=== PATIENT | female | born 1965 | race American Indian/Alaskan Native ===

== ENCOUNTER 2022-02-03 11:50 | Inpatient (IN) | payer OTHER ==
--- NOTE | 2022-02-03 12:33 | XRay Report ---
CHEST 1 VIEW INDICATION: Chest Pain. COMPARISON: None FINDINGS: Support devices: None. Heart: Mild cardiomegaly Lungs/Pleura: Mild central pulmonary venous congestion. The lungs are clear otherwise with no evidenc e for infiltrate, pleural effusion or pneumothorax. Additional findings: None. IMPRESSION: Mild cardiomegaly and central pulmonary venous congestion but no CHF. Signer Name: Amadeo Ferraro Jr, MD Signed: 02/03/2022 12:29 PM Workstation Name: [id number]
--- NOTE | 2022-02-03 13:34 | Emergency Department Report ---
ED Chest Pain HPI - General Chief Complaint: Chest Pain Stated Complaint: Dyspnea with exertion Time Seen by Provider: 02/03/22 12:01 Source: EMS Mode of arrival: Stretcher Limitations: No Limitations - History of Present Illness Initial Comments: Patient is a 56-year-old female with past medical history of hyperlipidemia who complaint chest pain. Patient states she was at work when her chest pain started. She states that substernal. It was initially severe but now has improved. She had some mild shortness of breath at that time but denies any s hortness of breath at this time. She denies any family history of any cardiac disease and she denies any history of pulmonary embolism. Severity scale (0 -10): 0 - Related Data Home Medications Medication Instructions Recorded Confirmed Last Taken Alendronate Sodium [Fosamax] 70 mg PO QWEEK 02/03/22 02/03/22 Unknown AtorvaSTATin [Lipitor] 20 mg PO QHS 02/03/22 02/03/22 02/02/22 2100 Ergocalciferol [Vitamin D2] 1 cap PO QWEEK 02/03/22 02/03/22 Unknown Ibuprofen [Motrin] 800 mg PO Q8HR PRN 02/03/22 02/03/22 Unknown Allergies Allergy/AdvReac Type Severity Reaction Status Date / Time Penicillins Allergy Unknown Verified 02/03/22 11:55 Heart Score - HEART Score History: Moderately suspicious EKG: Normal Age: 45-65 Risk factors: 1-2 risk factors Troponin: < normal limit HEART Score: 3 - EKG Read Time Time EKG Completed: 12:23 EKG Read Time: 12:23 ED Review of Systems ROS: Stated complaint: Dyspnea with exertion Other details as noted in HPI Constitutional: denies: chills, fever Eyes: denies: eye pain ENT: denies: ear pain, throat pain Respiratory: SOB at rest. denies: cough, orthopnea, SOB with exertion Cardiovascular: chest pain. denies: palpitations Endocrine: no symptoms reported Gastrointestinal: as per HPI Genitourinary: denies: urgency, dysuria, discharge Musculoskeletal: denies: back pain, joint swelling, arthralgia Skin: denies: rash, lesions Neurological: denies: headache, weakness, paresthesias Psychiatric: denies: anxiety, depression Hematological/Lymphatic: denies: easy bleeding, easy bruising ED Past Medical Hx - Past Medical History Previous Medical History?: No - Medications Home Medications: Home Medications Medication Instructions Recorded Confirmed Last Taken Type Alendronate Sodium [Fosamax] 70 mg PO QWEEK 02/03/22 02/03/22 Unknown History AtorvaSTATin [Lipitor] 20 mg PO QHS 02/03/22 02/03/22 02/02/22 History 2100 Ergocalciferol [Vitamin D2] 1 cap PO QWEEK 02/03/22 02/03/22 Unknown History Ibuprofen [Motrin] 800 mg PO Q8HR PRN 02/03/22 02/03/22 Unknown History ED Physical Exam - General Limitations: No Limitations General appearance: alert, in no apparent distress - Head Head exam: Present: atraumatic, normocephalic - Eye Eye exam: Present: normal appearance - ENT ENT exam: Present: mucous membranes moist - Neck Neck exam: Present: normal inspection - Respiratory Respiratory exam: Present: normal lung sounds bilaterally. Absent: respiratory distress - Cardiovascular Cardiovascular Exam: Present: irregular rhythm. Absent: systolic murmur, diastolic murmur, rubs, gallop - GI/Abdominal GI/Abdominal exam: Present: soft, normal bowel sounds - Rectal Rectal exam: Present: deferred - Extremities Exam Extremities exam: Present: normal inspection - Back Exam Back exam: Present: normal inspection - Neurological Exam Neurological exam: Present: alert, oriented X3 - Psychiatric Psychiatric exam: Present: normal affect, normal mood - Skin Skin exam: Present: warm, dry, intact, normal color. Absent: rash ED Course Vital Signs 02/03/22 02/03/22 02/03/22 11:54 12:28 12:40 Temperature 98.4 F Pulse Rate 118 H 91 H Respiratory 16 16 Rate Blood Pressure Blood Pressure 147/96 [Right] O2 Sat by Pulse 100 Oximetry 02/03/22 02/03/22 02/03/22 16:01 17:01 18:01 Temperature Pulse Rate 115 H 102 H 109 H Respiratory 12 11 L 13 Rate Blood Pressure 118/77 114/81 130/89 Blood Pressure [Right] O2 Sat by Pulse 99 97 99 Oximetry 02/03/22 02/03/22 02/03/22 19:01 20:01 21:00 Temperature Pulse Rate 123 H 107 H Respiratory 17 20 Rate Blood Pressure 139/64 131/80 131/80 Blood Pressure [Right] O2 Sat by Pulse 84 97 79 L Oximetry 02/03/22 02/03/22 22:01 22:50 Temperature 98.0 F Pulse Rate 95 H 74 Respiratory 14 21 Rate Blood Pressure 146/109 Blood Pressure 170/50 [Right] O2 Sat by Pulse 98 Oximetry ED Medical Decision Making - Lab Data Result diagrams: 02/03/22 12:42 02/03/22 12:48 - EKG Data -: EKG Interpreted by Me No standard instances Rhythm: A.Fib - EKG Data When compared to previous EKG there are: previous EKG unavailable - Radiology Data Radiology results: report reviewed, image reviewed - Medical Decision Making Patient is a 56-year-old female here with complaint of chest pain. Differential includes pneumonia, pneumothorax, ACS. Considered but less likely would be aortic dissection and pulmonary embolism. Patient's initial EKG does not show any acute ischemia but she is noted to be in A. fib with a rate of 91. Given this we will order labs including CBC, CMP, Trope, BNP, chest x-ray is also ordered. Patient likely to be admitted as this is new onset A. fib. Critical care attestation.: If time is entered above; I have spent that time in minutes in the direct care of this critically ill patient, excluding procedure time. ED Disposition Clinical Impression: New onset a-fib Disposition: 09 ADMITTED INPATIENT Is pt being admited?: Yes Does the pt Need Aspirin: Yes Condition: Stable
[2022-02-03 13:43] LABS: Basophils % (Auto) 0.2 % (0.0-1.8); Eosinophils % (Auto) 0.5 % (0.0-4.3); Hemoglobin 12.7 gm/dl (10.1-14.3); Lymphocytes # (Auto) 2.3 K/mm3 (1.2-5.4); Lymphocytes % (Auto) 37.5 % (13.4-35.0); Mean Corpuscular HGB Conc 32 % (30-34); Mean Corpuscular Volume 95 fl (79-97); Monocytes # (Auto) 0.6 K/mm3 (0.0-0.8); Monocytes % (Auto) 10.6 % (0.0-7.3); Platelet Count 242 K/mm3 (140-440); Red Blood Count 4.23 M/mm3 (3.65-5.03); Red Cell Distribution Width 13.4 % (13.2-15.2)
[2022-02-03 13:58] LABS: Alanine Aminotransferase 13 units/L (7-56); Albumin 3.9 g/dL (3.9-5); Blood Urea Nitrogen 13 mg/dL (7-17); Calcium 9.4 mg/dL (8.4-10.2); Hemolysis Index 9
[2022-02-03 14:01] LABS: BUN/Creatinine Ratio 33
[2022-02-03] MEDS ORDERED: MORPHINE 2 MG/1 ML INJ IV PRN (19:41)
[2022-02-03] MEDS ORDERED: METOCLOPRAMIDE 10 MG/2 ML INJ IV PRN (19:41)
[2022-02-03] MEDS ORDERED: ACETAMINOPHEN 325 MG TAB PO PRN (19:41)
[2022-02-03] MEDS ORDERED: ONDANSETRON 4 MG/2 ML INJ IV PRN (19:41)
--- NOTE | 2022-02-03 19:47 | History and Physical Report ---
History of Present Illness Date of examination: 02/03/22 Date of admission: February 03, 2022 Chief complaint: Palpitations and chest pain since a.m. History of present illness: 56-year-old -[place] female with no significant past except for hyperlipidemia comes in for palpitations and chest pain since a.m. Palpitations are intermittent. Chest pain is intermittent. In the emergency room patient had a atrial fibrillation with rapid ventricular rate. Also has some mild shortness of breath. No diaphoresis. No radiation. No coronary artery disease or stents in the past. Had a annual physical recently. Past History Past Medical History: hyperlipidemia, other (Vitamin D deficiency, osteoporosis) Past Surgical History: No surgical history Social history: lives with family, full code Family history: hypertension Review of Systems ROS: Stated complaint: Dyspnea with exertion Other details as noted in HPI Constitutional: denies: chills, fever Eyes: denies: eye pain ENT: denies: ear pain, throat pain Respiratory: SOB at rest. denies: cough, orthopnea, SOB with exertion Cardiovascular: chest pain. denies: palpitations Endocrine: no symptoms reported Gastrointestinal: as per HPI Genitourinary: denies: urgency, dysuria, discharge Musculoskeletal: denies: back pain, joint swelling, arthralgia Skin: denies: rash, lesions Neurological: denies: headache, weakness, paresthesias Psychiatric: denies: anxiety, depression Hematological/Lymphatic: denies: easy bleeding, easy bruising Medications and Allergies Allergies Allergy/AdvReac Type Severity Reaction Status Date / Time Penicillins Allergy Unknown Verified 02/03/22 11:55 Home Medications Medication Instructions Recorded Confirmed Last Taken Type Alendronate Sodium [Fosamax] 70 mg PO QWEEK 02/03/22 02/03/22 Unknown History AtorvaSTATin [Lipitor] 20 mg PO QHS 02/03/22 02/03/22 02/02/22 History 2100 Ergocalciferol [Vitamin D2] 1 cap PO QWEEK 02/03/22 02/03/22 Unknown History Ibuprofen [Motrin] 800 mg PO Q8HR PRN 02/03/22 02/03/22 Unknown History Exam - Constitutional Vitals: Temp Pulse Resp BP Pulse Ox 98.4 F 109 H 13 130/89 99 02/03/22 11:54 02/03/22 18:01 02/03/22 18:01 02/03/22 18:01 02/03/22 18:01 General appearance: Present: no acute distress, well-nourished - EENT Eyes: Present: PERRL ENT: hearing intact, clear oral mucosa - Neck Neck: Present: supple, normal ROM - Respiratory Respiratory effort: normal Respiratory: bilateral: CTA - Cardiovascular Heart rate: 130 Rhythm: irregularly irregular Heart Sounds: Present: S1 & S2. Absent: rub, click - Extremities Extremities: pulses symmetrical, No edema Peripheral Pulses: within normal limits - Abdominal General gastrointestinal: Present: soft, non-tender, non-distended, normal bowel sounds Female genitourinary: Present: normal - Integumentary Integumentary: Present: clear, warm, dry - Musculoskeletal Musculoskeletal: gait normal, strength equal bilaterally - Psychiatric Psychiatric: appropriate mood/affect, intact judgment & insight - Neurologic Neurologic: CNII-XII intact, moves all extremities HEART Score - HEART Score History: Moderately suspicious EKG: Normal Age: 45-65 Risk factors: 1-2 risk factors Troponin: Troponin T < 0.010 ng/mL (0.00-0.029) 02/03/22 15:35 Troponin: < normal limit HEART Score: 3 - Critical Actions Critical Actions: 4-6 pts:12-16.6% risk of adverse cardiac event. Should be admitted Results - Labs CBC & Chem 7: 02/03/22 12:42 02/04/22 04:38 Labs: Laboratory Last Values WBC 6.1 K/mm3 (4.5-11.0) 02/03/22 12:42 RBC 4.23 M/mm3 (3.65-5.03) 02/03/22 12:42 Hgb 12.7 gm/dl (10.1-14.3) 02/03/22 12:42 Hct 40.0 % (30.3-42.9) 02/03/22 12:42 MCV 95 fl (79-97) 02/03/22 12:42 MCH 30 pg (28-32) 02/03/22 12:42 MCHC 32 % (30-34) 02/03/22 12:42 RDW 13.4 % (13.2-15.2) 02/03/22 12:42 Plt Count 242 K/mm3 (140-440) 02/03/22 12:42 Lymph % (Auto) 37.5 % (13.4-35.0) H 02/03/22 12:42 [place] % (Auto) 10.6 % (0.0-7.3) H 02/03/22 12:42 Eos % (Auto) 0.5 % (0.0-4.3) 02/03/22 12:42 Baso % (Auto) 0.2 % (0.0-1.8) 02/03/22 12:42 Lymph # (Auto) 2.3 K/mm3 (1.2-5.4) 02/03/22 12:42 [place] # (Auto) 0.6 K/mm3 (0.0-0.8) 02/03/22 12:42 Eos # (Auto) 0.0 K/mm3 (0.0-0.4) 02/03/22 12:42 Baso # (Auto) 0.0 K/mm3 (0.0-0.1) 02/03/22 12:42 Seg Neutrophils % 51.2 % (40.0-70.0) 02/03/22 12:42 Seg Neutrophils # 3.1 K/mm3 (1.8-7.7) 02/03/22 12:42 Sodium 138 mmol/L (137-145) 02/03/22 12:48 Potassium 4.4 mmol/L (3.6-5.0) 02/03/22 12:48 Chloride 102.5 mmol/L (98-107) 02/03/22 12:48 Carbon Dioxide 24 mmol/L (22-30) 02/03/22 12:48 Anion Gap 16 mmol/L 02/03/22 12:48 BUN 13 mg/dL (7-17) 02/03/22 12:48 Creatinine 0.4 mg/dL (0.6-1.2) L 02/03/22 12:48 Estimated GFR > 60 ml/min 02/03/22 12:48 BUN/Creatinine Ratio 33 % 02/03/22 12:48 Glucose 90 mg/dL (65-100) 02/03/22 12:48 Calcium 9.4 mg/dL (8.4-10.2) 02/03/22 12:48 Magnesium 1.70 mg/dL (1.7-2.3) 02/03/22 12:48 Total Bilirubin 0.40 mg/dL (0.1-1.2) 02/03/22 12:48 AST 15 units/L (5-40) 02/03/22 12:48 ALT 13 units/L (7-56) 02/03/22 12:48 Alkaline Phosphatase 64 units/L (35-129) 02/03/22 12:48 Troponin T < 0.010 ng/mL (0.00-0.029) 02/03/22 15:35 NT-Pro-B Natriuret Pep 606.2 pg/mL (0-900) 02/03/22 12:42 Total Protein 7.0 g/dL (6.3-8.2) 02/03/22 12:48 Albumin 3.9 g/dL (3.9-5) 02/03/22 12:48 Albumin/Globulin Ratio 1.3 % 02/03/22 12:48 TSH 2.040 mlU/mL (0.270-4.200) 02/03/22 12:42 Short CBC 02/03/22 Range/Units 12:42 WBC 6.1 (4.5-11.0) K/mm3 Hgb 12.7 (10.1-14.3) gm/dl Hct 40.0 (30.3-42.9) % Plt Count 242 (140-440) K/mm3 BMP 02/03/22 12:48 Sodium 138 Potassium 4.4 Chloride 102.5 Carbon Dioxide 24 BUN 13 Creatinine 0.4 L Glucose 90 Calcium 9.4 Cardiac Enzymes 02/03/22 02/03/22 Range/Units 12:42 15:35 Troponin T < 0.010 < 0.010 (0.00-0.029) ng/mL Liver Function 02/03/22 Range/Units 12:48 Total Bilirubin 0.40 (0.1-1.2) mg/dL AST 15 (5-40) units/L ALT 13 (7-56) units/L Alkaline Phosphatase 64 (35-129) units/L Albumin 3.9 (3.9-5) g/dL Short CBC 02/03/22 Range/Units 12:42 WBC 6.1 (4.5-11.0) K/mm3 Hgb 12.7 (10.1-14.3) gm/dl Hct 40.0 (30.3-42.9) % Plt Count 242 (140-440) K/mm3 BMP 02/03/22 02/04/22 12:48 04:38 Sodium 138 142 Potassium 4.4 4.1 Chloride 102.5 106.5 Carbon Dioxide 24 25 BUN 13 10 Creatinine 0.4 L 0.5 L Glucose 90 86 Calcium 9.4 9.0 Cardiac Enzymes 02/03/22 02/03/22 02/03/22 Range/Units 12:42 15:35 20:06 Troponin T < 0.010 < 0.010 < 0.010 (0.00-0.029) ng/mL 02/04/22 Range/Units 04:38 Troponin T < 0.010 (0.00-0.029) ng/mL Liver Function 02/03/22 02/04/22 Range/Units 12:48 04:38 Total Bilirubin 0.40 0.40 (0.1-1.2) mg/dL AST 15 13 (5-40) units/L ALT 13 11 (7-56) units/L Alkaline Phosphatase 64 59 (35-129) units/L Albumin 3.9 3.4 L (3.9-5) g/dL - Imaging and Cardiology EKG: report reviewed (Atrial fibrillation with RVR no acute ST-T wave changes) Chest x-ray: report reviewed (No acute findings) Assessment and Plan Advance Directives: Yes (Full code) VTE prophylaxis?: Chemical Plan of care discussed with patient/family: Yes - Patient Problems (1) Atrial fibrillation with RVR Current Visit: Yes Status: Acute Plan to address problem: Patient initiated on IV diltiazem at 5 mg/h Cardiology consult requested Add Eliquis if atrial fibrillation does not revert back to normal sinus rhythm (2) Acute coronary syndrome Current Visit: Yes Status: Acute Plan to address problem: Patient for serial troponins and Lexiscan in the morning Cardiology consult requested (3) DVT prophylaxis Current Visit: Yes Status: Acute Plan to address problem: On heparin GI prophylaxis (4) Advance care planning Current Visit: Yes Status: Acute Plan to address problem: Disease education conducted, care plan discussed, diagnosis discussed, prognosis discussed. Patient is full code. Patient acknowledged understanding and agreement with care plan. +30 minutes.
[2022-02-03] MEDS ORDERED: dilTIAZem/D5W 100 MG/100 ML BAG IV SCH (20:00)
[2022-02-03] MEDS: HEPARIN 5,000 UNIT/1 ML VIAL SUB-Q SCH (22:51)
[2022-02-03] MEDS: FAMOTIDINE 20 MG TAB PO SCH (22:51)
[2022-02-04] MEDS: dilTIAZem 30 MG TAB PO SCH ×2 (01:49→06:28)
[2022-02-04 05:31] LABS: Alanine Aminotransferase 11 units/L (7-56); Albumin 3.4 g/dL (3.9-5); Blood Urea Nitrogen 10 mg/dL (7-17); Hemolysis Index 7
[2022-02-04 05:47] LABS: BUN/Creatinine Ratio 20
[2022-02-04] MEDS ORDERED: REGADENOSON 0.4 MG/5 ML INJ IV ONE (07:24)
--- NOTE | 2022-02-04 09:19 | Electrocardiograph Report ---
[facility] Test Date: 2022-02-03 Test Time: 12:23:45 Pat Name: JEAN CARLOS FERNANDO Department: Room: A464 1 Gender: F Planning Aide: DIPIKA : 1965 Requested By: DIMPLE PAT Order Number: [id number] Reading MD: Mitchel Freire Measurements Intervals [place] Rate: 91 P: CA: QRS: 0 QRSD: 70 T: 24 QT: 362 QTc: 446 Interpretive Statements Atrial fibrillation No previous ECG available for comparison Electronically Signed On 02-04-2022 9:18:57 EST by Mitchel Freire
[2022-02-04] MEDS ORDERED: dilTIAZem 30 MG TAB PO SCH (09:40)
--- NOTE | 2022-02-04 10:35 | Nuclear Medicine Report ---
APPROVED REPORT Exam: Nuclear Stress Test Indication: Chest pain Patient Location: [address] [place] [address] Room #: A464 Ht: 5 ft 1 in Wt: 271 lbs BSA: 2.15 m2 HR: 99 bpmBP: 123/85 mmHgBMI: 51.19 Rhythm: Atrial Fibrillation Stress Test Details Stress Test: Pharmacologic stress testing performed using 0.4 mg of regadenoson per 5 mL given IV over 10 seconds. Reason for pharmacologic stress test: Atrial Fibrillation. HR Resting HR: 92 bpm Max HR Achieved: 148 bpm Max Heart Rate (APMHR): 163 bpm Target HR (85% APMHR): 138 bpm % of APMHR: 90 Recovery HR: 126 bpm HR response to stress: Normal HR response to stress BP Resting BP: 123/78 mmHg Max BP: 135/88 mmHg Recovery BP: 114/81 mmHg BP response to stress: Normal blood pressure response to stress. ECG Resting ECG: Atrial Fibrillation Stress ECG: Atrial Fibrillation Arrhythmia: Atrial fibrillation Recovery ECG: Atrial Fibrillation Recovery Arrhythmia: Atrial Fibrillation Clinical Reason for Termination: Completed protocol Stress Symptoms: None NM EXAM: Myocardial Perfusion REST/STRESS Imaging Protocol: Rest Tc-99m/Stress Tc-99m 1 day Resting Data Rest SPECT myocardial perfusion imaging was performed in supine position 45 minutes following the intravenous injection of 10 mCi of Tc-99m Myoview. Time of rest injection: 0730 Pharmacologic Stress Pharmacologic stress test was performed by injecting Regadenoson 0.4 mg IV push followed by the intravenous injection of 28 mCi of Tc-99m Myoview. Time of stress injection: 0922 Gated Stress SPECT was performed 30 minutes after stress injection. The images were gated to evaluate regional wall motion and calculate left ventricular ejection fraction. Study Quality Study: excellent Lung Uptake: Normal Study Data TID = 1.20. Perfusion Wall Motion The rest and stress images show normal left ventricular wall motion. Nuclear Conclusion ECG Findings: negative for ischemia Clinical Findings: negative for ischemia Nuclear Findings: negative for ischemia Exercise Capacity: not assessed Left Ventricular Function: normal negative lexiscan ekg afib non specific st-t Normal left ventricular size and function with no regional wall motion abnormalities.
--- NOTE | 2022-02-04 11:25 | Consultation ---
History of Present Illness Consult date: 02/04/22 Requesting physician: BILLY NATARAJAN Consult reason: atrial fibrillation History of present illness: Patient is 56-year-old female with no past medical history presents to the ED yesterday with complaint of palpitations/chest pounding associated with some shortness of breath while at work that day. Patient reports she is never had this feeling however she does state that she has had episodes of shortness of breath in the past however they were transient and did not last long. On arrival to the ED patient was found to be in A. fib with RVR rate into the 120s. Of note patient reports that she does follow with a PCP and recently saw her PCP about a month and a half ago. She reports that to the best of her knowledge she has never had an arrhythmia in the past. Patient denies any nausea, vomiting, lightheadedness, or diaphoresis. Patient is previously unknown to our practice. Cardiology is consulted for A. fib with RVR Past History Past Medical History: hyperlipidemia, other (Vitamin D deficiency, osteoporosis) Past Surgical History: No surgical history Social history: lives with family, full code Family history: hypertension Medications and Allergies Allergies Allergy/AdvReac Type Severity Reaction Status Date / Time Penicillins Allergy Unknown Verified 02/03/22 11:55 Home Medications Medication Instructions Recorded Confirmed Last Taken Type Alendronate Sodium [Fosamax] 70 mg PO QWEEK 02/03/22 02/03/22 Unknown History AtorvaSTATin [Lipitor] 20 mg PO QHS 02/03/22 02/03/22 02/02/22 History 2100 Ergocalciferol [Vitamin D2] 1 cap PO QWEEK 02/03/22 02/03/22 Unknown History Ibuprofen [Motrin] 800 mg PO Q8HR PRN 02/03/22 02/03/22 Unknown History Active Meds: Active Medications Acetaminophen (Acetaminophen 325 Mg Tab) 650 mg PO Q4H PRN PRN Reason: Pain MILD(1-3)/Fever >100.5/ESTRADA Apixaban (Apixaban 5 Mg Tab) 5 mg PO Q12HR ADELE; Protocol Diltiazem HCl (Diltiazem 60 Mg Tab) 60 mg PO Q6HR ADELE Famotidine (Famotidine 20 Mg Tab) 20 mg PO BID ADELE Last Admin: 02/03/22 22:51 Dose: 20 mg Sodium Chloride (Nacl 0.9% 1000 Ml) 1,000 mls @ 75 mls/hr IV DIRECT [facility] Metoclopramide HCl (Metoclopramide 10 Mg/2 Ml Inj) 10 mg IV Q6H PRN PRN Reason: Nausea And Vomiting Morphine Sulfate (Morphine 2 Mg/1 Ml Inj) 2 mg IV Q4H PRN PRN Reason: Pain, Moderate (4-6) Ondansetron HCl (Ondansetron 4 Mg/2 Ml Inj) 4 mg IV Q8H PRN PRN Reason: Nausea And Vomiting Sodium Chloride (Sodium Chloride 0.9% 10 Ml Flush Syringe) 10 ml IV BID [facility] Last Admin: 02/03/22 22:51 Dose: 10 ml Sodium Chloride (Sodium Chloride 0.9% 10 Ml Flush Syringe) 10 ml IV PRN PRN PRN Reason: LINE FLUSH Review of Systems Constitutional: no weight loss, no weight gain Ears, nose, mouth and throat: no nasal discharge, no sinus pressure, no sinus pain Cardiovascular: palpitations, rapid/irregular heart beat, shortness of breath, dyspnea on exertion, no chest pain, no orthopnea, no edema, no syncope, no lightheadedness Respiratory: shortness of breath, dyspnea on exertion Gastrointestinal: no abdominal pain, no nausea, no vomiting Musculoskeletal: no neck stiffness, no neck pain, no shooting arm pain Integumentary: no rash, no pruritis, no redness Neurological: no head injury, no transient paralysis, no paralysis, no weakness Psychiatric: no anxiety, no memory loss Endocrine: no cold intolerance, no heat intolerance Hematologic/Lymphatic: no easy bruising, no easy bleeding Physical Examination Vital Signs Temp Pulse Resp BP Pulse Ox 98.4 F 118 H 16 147/96 97 02/03/22 11:54 02/03/22 11:54 02/03/22 11:54 02/03/22 11:54 02/03/22 11:54 General appearance: no acute distress Cardiac: Positive: irregularly irregular, Tachycardia Lungs: Positive: Normal Breath Sounds Neuro: Positive: Grossly Intact Abdomen: Positive: Soft, Active Bowel Sounds Skin: Negative: Rash, Suspicious Lesions, Ulceration Extremities: Present: upper extr. pulses. Absent: edema Results 02/04/22 11:00 02/04/22 11:00 Cardiac Enzymes 02/03/22 02/04/22 Range/Units 12:48 04:38 AST 15 13 (5-40) units/L CBC 02/03/22 Range/Units 12:42 WBC 6.1 (4.5-11.0) K/mm3 RBC 4.23 (3.65-5.03) M/mm3 Hgb 12.7 (10.1-14.3) gm/dl Hct 40.0 (30.3-42.9) % Plt Count 242 (140-440) K/mm3 Lymph # (Auto) 2.3 (1.2-5.4) K/mm3 [place] # (Auto) 0.6 (0.0-0.8) K/mm3 Eos # (Auto) 0.0 (0.0-0.4) K/mm3 Baso # (Auto) 0.0 (0.0-0.1) K/mm3 Comprehensive Metabolic Panel 02/03/22 02/04/22 Range/Units 12:48 04:38 Sodium 138 142 (137-145) mmol/L Potassium 4.4 4.1 (3.6-5.0) mmol/L Chloride 102.5 106.5 (98-107) mmol/L Carbon Dioxide 24 25 (22-30) mmol/L BUN 13 10 (7-17) mg/dL Creatinine 0.4 L 0.5 L (0.6-1.2) mg/dL Glucose 90 86 (65-100) mg/dL Calcium 9.4 9.0 (8.4-10.2) mg/dL AST 15 13 (5-40) units/L ALT 13 11 (7-56) units/L Alkaline Phosphatase 64 59 (35-129) units/L Total Protein 7.0 6.3 (6.3-8.2) g/dL Albumin 3.9 3.4 L (3.9-5) g/dL - Imaging and Cardiology Echo: pending EKG interpretations - Telemetry EKG Rhythm: Atrial Fibrillation - EKG Supraventricular dysrhythmia: atrial fibrillation Assessment and Plan Patient is 56-year-old female with no past medical history presents to the ED yesterday with complaint of palpitations/chest pounding associated with some shortness of breath while at work that day New onset A. fib with RVR Obesity Lexiscan MPI stress test 02/04/2022-negative for ischemia with normal LV size and function and no regional wall motion abnormality Plan: EKG shows A. fib rate 90s no acute ischemic changes troponins negative x4. Patient denies any complaint of chest pain AMI ruled out Increased to diltiazem 60 mg p.o. every 6 hours for rate control. If HR not controlled this afternoon may initiate digoxin Initiate anticoagulation with Eliquis Echo pending If rate control patient and patient stable possible discharge in a.m. Patient has a follow up with with Dr. Freire, [facility], on 02/14/2022 at 9:30am in our [place] location. Patient seen in conjunction with Dr. Freire who agrees with this plan of care - Patient Problems (1) Obesity Current Visit: Yes Status: Acute (2) HLD (hyperlipidemia) Current Visit: Yes Status: Acute (3) Atrial fibrillation with RVR Current Visit: Yes Status: Acute (4) New onset a-fib Current Visit: Yes Status: Acute
[2022-02-04 11:27] LABS: Hemoglobin 12.7 gm/dl (10.1-14.3); Mean Corpuscular HGB Conc 33 % (30-34); Mean Corpuscular Volume 94 fl (79-97); Red Blood Count 4.15 M/mm3 (3.65-5.03); Red Cell Distribution Width 13.3 % (13.2-15.2)
[2022-02-04 11:41] LABS: INR 0.97 (0.87-1.13)
[2022-02-04 11:42] LABS: Partial Thromboplastin Time 28.6 Sec. (24.2-36.6)
[2022-02-04] MEDS: dilTIAZem 60 MG TAB PO SCH ×2 (11:49→18:56)
[2022-02-04] MEDS: FAMOTIDINE 20 MG TAB PO SCH ×2 (11:49→21:23)
[2022-02-04] MEDS: HEPARIN 5,000 UNIT/1 ML VIAL SUB-Q SCH (11:49)
[2022-02-04] MEDS: APIXABAN 5 MG TAB PO SCH ×2 (11:49→21:23)
[2022-02-04 12:05] LABS: Platelet Count 232 K/mm3 (140-440)
--- NOTE | 2022-02-04 19:39 | Progress Note ---
Assessment and Plan Assessment and plan: Advance Directives: Yes (Full code) VTE prophylaxis?: Chemical Plan of care discussed with patient/family: Yes --Atrial fibrillation with RVR Current Visit: Yes Status: Acute Patient initiated on IV diltiazem at 5 mg/h Cardiology evaluated the patient Intermittent rapid ventricular rate Anticoagulation with Eliquis -- Acute coronary syndrome Current Visit: Yes Status: Acute Patient for serial troponins and Lexiscan in the morning Lexiscan negative for ischemia, normal LV function --Mild hypoalbuminemia ; albumin 3.2 Nutrition supplements and supportive care --DVT prophylaxis Current Visit: Yes Status: Acute On heparin GI prophylaxis -Morbid obesity; BMI 55.3 Dietary modification, exercise as tolerated and weight reduction When medically stable, patient may benefit from bariatric surgical evaluation For weight reduction program when she is medically stable -Advance care planning Current Visit: Yes Status: Acute Plan to address problem: Disease education conducted, care plan discussed, diagnosis discussed, prognosis discussed. Patient is full code. Patient acknowledged understanding and agreement with care plan. +30 minutes. Closely monitor the patient, if heart rate is well controlled Patient may be discharged tomorrow if stable per cardiology Plan of care reviewed with the patient and her nurse History Interval history: I have seen and examined the patient at the bedside Patient's chart and medications reviewed No new events reported by the nursing staff Vital signs noted Hospitalist Physical - Constitutional Vitals: Temp Pulse Resp BP Pulse Ox 98.0 F 95 H 18 111/68 97 02/04/22 16:31 02/04/22 16:31 02/04/22 16:31 02/04/22 16:31 02/04/22 16:31 General appearance: Present: no acute distress, well-nourished, obese (Morbidly obese) - EENT Eyes: Present: PERRL, EOM intact - Neck Neck: Present: supple, normal ROM - Respiratory Respiratory effort: normal Respiratory: bilateral: diminished, negative: rales, rhonchi, wheezing - Cardiovascular Rhythm: regular Heart Sounds: Present: S1 & S2 - Extremities Extremities: no ischemia, No edema - Abdominal General gastrointestinal: soft, non-tender, non-distended, normal bowel sounds - Integumentary Integumentary: Present: clear, warm - Psychiatric Psychiatric: appropriate mood/affect, cooperative - Neurologic Neurologic: CNII-XII intact, moves all extremities HEART Score - HEART Score EKG: Normal Age: 45-65 Risk factors: 1-2 risk factors Troponin: Troponin T < 0.010 ng/mL (0.00-0.029) 02/04/22 11:00 Troponin: < normal limit - Critical Actions Critical Actions: 4-6 pts:12-16.6% risk of adverse cardiac event. Should be admitted Results - Labs CBC & Chem 7: 02/04/22 11:00 02/04/22 11:00 Labs: Laboratory Last Values WBC 5.9 K/mm3 (4.5-11.0) 02/04/22 11:00 RBC 4.15 M/mm3 (3.65-5.03) 02/04/22 11:00 Hgb 12.7 gm/dl (10.1-14.3) 02/04/22 11:00 Hct 39.0 % (30.3-42.9) 02/04/22 11:00 MCV 94 fl (79-97) 02/04/22 11:00 MCH 31 pg (28-32) 02/04/22 11:00 MCHC 33 % (30-34) 02/04/22 11:00 RDW 13.3 % (13.2-15.2) 02/04/22 11:00 Plt Count 232 K/mm3 (140-440) 02/04/22 11:00 Lymph % (Auto) 37.5 % (13.4-35.0) H 02/03/22 12:42 [place] % (Auto) 10.6 % (0.0-7.3) H 02/03/22 12:42 Eos % (Auto) 0.5 % (0.0-4.3) 02/03/22 12:42 Baso % (Auto) 0.2 % (0.0-1.8) 02/03/22 12:42 Lymph # (Auto) 2.3 K/mm3 (1.2-5.4) 02/03/22 12:42 [place] # (Auto) 0.6 K/mm3 (0.0-0.8) 02/03/22 12:42 Eos # (Auto) 0.0 K/mm3 (0.0-0.4) 02/03/22 12:42 Baso # (Auto) 0.0 K/mm3 (0.0-0.1) 02/03/22 12:42 Seg Neutrophils % 51.2 % (40.0-70.0) 02/03/22 12:42 Seg Neutrophils # 3.1 K/mm3 (1.8-7.7) 02/03/22 12:42 PT 13.9 Sec. (12.2-14.9) 02/04/22 11:00 INR 0.97 (0.87-1.13) 02/04/22 11:00 APTT 28.6 Sec. (24.2-36.6) 02/04/22 11:00 Sodium 142 mmol/L (137-145) 02/04/22 04:38 Potassium 4.1 mmol/L (3.6-5.0) 02/04/22 04:38 Chloride 106.5 mmol/L (98-107) 02/04/22 04:38 Carbon Dioxide 25 mmol/L (22-30) 02/04/22 04:38 Anion Gap 15 mmol/L 02/04/22 04:38 BUN 10 mg/dL (7-17) 02/04/22 04:38 Creatinine 0.5 mg/dL (0.6-1.2) L 02/04/22 11:00 Estimated GFR > 60 ml/min 02/04/22 11:00 BUN/Creatinine Ratio 20 % 02/04/22 04:38 Glucose 86 mg/dL (65-100) 02/04/22 04:38 Calcium 9.0 mg/dL (8.4-10.2) 02/04/22 04:38 Magnesium 1.70 mg/dL (1.7-2.3) 02/03/22 12:48 Total Bilirubin 0.40 mg/dL (0.1-1.2) 02/04/22 04:38 AST 13 units/L (5-40) 02/04/22 04:38 ALT 11 units/L (7-56) 02/04/22 04:38 Alkaline Phosphatase 59 units/L (35-129) 02/04/22 04:38 Troponin T < 0.010 ng/mL (0.00-0.029) 02/04/22 11:00 NT-Pro-B Natriuret Pep 606.2 pg/mL (0-900) 02/03/22 12:42 Total Protein 6.3 g/dL (6.3-8.2) 02/04/22 04:38 Albumin 3.4 g/dL (3.9-5) L 02/04/22 04:38 Albumin/Globulin Ratio 1.2 % 02/04/22 04:38 TSH 2.040 mlU/mL (0.270-4.200) 02/03/22 12:42 Crespo/IV: Voiding Method Toilet Active Medications - Current Medications Current Medications: Generic Name Dose Route Start Last Admin Trade Name Freq PRN Reason Stop Dose Admin Acetaminophen 650 mg 02/03/22 19:41 Acetaminophen 325 Mg Tab PO Q4H PRN Pain MILD(1-3)/Fever >100.5/ESTRADA Apixaban 5 mg 02/04/22 11:30 02/04/22 11:49 Apixaban 5 Mg Tab PO 5 mg Q12HR ADELE Administration Protocol Diltiazem HCl 60 mg 02/04/22 12:00 02/04/22 18:56 Diltiazem 60 Mg Tab PO 60 mg Q6HR ADELE Administration Famotidine 20 mg 02/03/22 22:00 02/04/22 11:49 Famotidine 20 Mg Tab PO 20 mg BID ADELE Administration Sodium Chloride 1,000 mls @ 75 mls/hr 02/03/22 19:45 Nacl 0.9% 1000 Ml IV DIRECT ADELE Metoclopramide HCl 10 mg 02/03/22 19:41 Metoclopramide 10 Mg/2 Ml Inj IV Q6H PRN Nausea And Vomiting Morphine Sulfate 2 mg 02/03/22 19:41 Morphine 2 Mg/1 Ml Inj IV Q4H PRN Pain, Moderate (4-6) Ondansetron HCl 4 mg 02/03/22 19:41 Ondansetron 4 Mg/2 Ml Inj IV Q8H PRN Nausea And Vomiting Sodium Chloride 10 ml 02/03/22 22:00 02/04/22 11:49 Sodium Chloride 0.9% 10 Ml Flush Syringe IV 10 ml BID ADELE Administration Sodium Chloride 10 ml 02/03/22 19:41 Sodium Chloride 0.9% 10 Ml Flush Syringe IV PRN PRN LINE FLUSH
[2022-02-05] MEDS: dilTIAZem 60 MG TAB PO SCH ×4 (00:01→18:12)
[2022-02-05] MEDS: FAMOTIDINE 20 MG TAB PO SCH ×2 (10:05→22:14)
[2022-02-05] MEDS: APIXABAN 5 MG TAB PO SCH ×2 (10:05→22:14)
[2022-02-05] MEDS: FLECAINIDE 100 MG TAB PO SCH ×3 (12:12→22:14)
--- NOTE | 2022-02-05 14:24 | Progress Note ---
Assessment and Plan Reduce diltiazem dose due to low normal BPs. Initiate flecainide with the hope of converting to sinus rhythm. - Patient Problems (1) Atrial fibrillation with RVR Current Visit: Yes Status: Acute (2) New onset a-fib Current Visit: Yes Status: Acute (3) Chest pain Current Visit: Yes Status: Acute (4) Pericardial effusion Current Visit: Yes Status: Acute Subjective Date of service: 02/05/22 Principal diagnosis: New onset AF with RVR, CP Interval history: No complaint. She remains in AF with RVR and borderline BPs. Objective Vital Signs Temp Pulse Resp BP Pulse Ox 02/05/22 11:04 98 02/05/22 10:59 97.5 F L 99 H 16 97/58 93 02/05/22 07:51 99.4 F 91 H 20 99/70 100 02/05/22 04:11 98.0 F 96 H 18 114/90 99 02/04/22 23:57 98.7 F 120 H 19 116/84 98 02/04/22 21:00 112 H 02/04/22 20:25 98.3 F 121 H 20 102/77 100 02/04/22 20:00 99 02/04/22 16:31 98.0 F 95 H 18 111/68 97 02/04/22 15:00 97 - Physical Examination General: No Apparent Distress HEENT: Positive: EOMI, Normocephaly, Mucus Membranes Moist Neck: Positive: neck supple, trachea midline Cardiac: Positive: irregularly irregular, S1/S2 Lungs: Positive: clear to auscultation Neuro: Positive: Grossly Intact Abdomen: Positive: Soft, Active Bowel Sounds. Negative: Tender Skin: Positive: Clear. Negative: Rash Musculoskeletal: Normal Range of Motion Extremities: Absent: edema - Imaging and Cardiology Echo: image reviewed - Telemetry EKG Rhythm: Atrial Fibrillation (with RVR)
--- NOTE | 2022-02-05 16:50 | Progress Note ---
Assessment and Plan Assessment and plan: --Atrial fibrillation with RVR/new onset Current Visit: Yes Status: Acute s/p IV Cardizem, transition to oral Cardizem Patient continues to have intermittent rapid ventricular rate, mild hypotension Cardiology evaluation noted and appreciated, decreased Cardizem dose added antiarrhythmic medications flecainide Anticoagulation with Eliquis Closely monitor overnight and discharge a.m. if stable -- Acute coronary syndrome Current Visit: Yes Status: Acute Patient for serial troponins and Lexiscan in the morning Lexiscan negative for ischemia, normal LV function --Mild hypoalbuminemia ; albumin 3.2 current Visit: Yes Status: Chronic Nutrition supplements and supportive care --DVT prophylaxis On Eliquis -Morbid obesity; BMI 55.3 Current Visit: Yes Status: Chronic Dietary modification, exercise as tolerated and weight reduction When medically stable, patient may benefit from bariatric surgical evaluation For weight reduction program when she is medically stable -Advance care planning +32 min Disease education conducted, care plan discussed, diagnosis discussed, prognosis discussed. Patient is full code. Junior Designer evaluation and recommendations discussed with the patient And I also discussed the importance of diet modification, exercise as tolerated, weight reduction Patient had few questions answered all of them verbalized understanding Patient acknowledged understanding and in agreement with care plan. +32 minutes. Closely monitor the patient, if heart rate is well controlled Patient may be discharged tomorrow if stable per cardiology Plan of care reviewed with the patient and her nurse As well discharge in 1 to 2 days if stable History Interval history: I have have seen and examined the patient at the bedside today Patient's chart and medications reviewed. Patient has intermittent rapid ventricular rate, and mild hypotension Cardiology decrease Cardizem dose and added antiarrhythmic drug flecainide Patient feels better no new complaints Vital signs noted Hospitalist Physical - Constitutional Vitals: Temp Pulse Resp BP Pulse Ox 97.8 F 96 H 16 114/70 100 02/05/22 15:41 02/05/22 15:41 02/05/22 15:41 02/05/22 15:41 02/05/22 15:41 General appearance: Present: no acute distress, well-nourished, obese (Morbidly obese) - EENT Eyes: Present: PERRL, EOM intact - Neck Neck: Present: supple, normal ROM - Respiratory Respiratory effort: normal Respiratory: bilateral: diminished, negative: rales, rhonchi, wheezing - Cardiovascular Rhythm: regular Heart Sounds: Present: S1 & S2 - Extremities Extremities: no ischemia, No edema - Abdominal General gastrointestinal: soft, non-tender, non-distended, normal bowel sounds - Integumentary Integumentary: Present: clear, warm - Psychiatric Psychiatric: appropriate mood/affect, cooperative - Neurologic Neurologic: CNII-XII intact, moves all extremities HEART Score - HEART Score EKG: Normal Age: 45-65 Risk factors: 1-2 risk factors Troponin: Troponin T < 0.010 ng/mL (0.00-0.029) 02/04/22 11:00 Troponin: < normal limit - Critical Actions Critical Actions: 4-6 pts:12-16.6% risk of adverse cardiac event. Should be admitted Results - Labs CBC & Chem 7: 02/04/22 11:00 02/04/22 11:00 Labs: Laboratory Last Values WBC 5.9 K/mm3 (4.5-11.0) 02/04/22 11:00 RBC 4.15 M/mm3 (3.65-5.03) 02/04/22 11:00 Hgb 12.7 gm/dl (10.1-14.3) 02/04/22 11:00 Hct 39.0 % (30.3-42.9) 02/04/22 11:00 MCV 94 fl (79-97) 02/04/22 11:00 MCH 31 pg (28-32) 02/04/22 11:00 MCHC 33 % (30-34) 02/04/22 11:00 RDW 13.3 % (13.2-15.2) 02/04/22 11:00 Plt Count 232 K/mm3 (140-440) 02/04/22 11:00 Lymph % (Auto) 37.5 % (13.4-35.0) H 02/03/22 12:42 [place] % (Auto) 10.6 % (0.0-7.3) H 02/03/22 12:42 Eos % (Auto) 0.5 % (0.0-4.3) 02/03/22 12:42 Baso % (Auto) 0.2 % (0.0-1.8) 02/03/22 12:42 Lymph # (Auto) 2.3 K/mm3 (1.2-5.4) 02/03/22 12:42 [place] # (Auto) 0.6 K/mm3 (0.0-0.8) 02/03/22 12:42 Eos # (Auto) 0.0 K/mm3 (0.0-0.4) 02/03/22 12:42 Baso # (Auto) 0.0 K/mm3 (0.0-0.1) 02/03/22 12:42 Seg Neutrophils % 51.2 % (40.0-70.0) 02/03/22 12:42 Seg Neutrophils # 3.1 K/mm3 (1.8-7.7) 02/03/22 12:42 PT 13.9 Sec. (12.2-14.9) 02/04/22 11:00 INR 0.97 (0.87-1.13) 02/04/22 11:00 APTT 28.6 Sec. (24.2-36.6) 02/04/22 11:00 Sodium 142 mmol/L (137-145) 02/04/22 04:38 Potassium 4.1 mmol/L (3.6-5.0) 02/04/22 04:38 Chloride 106.5 mmol/L (98-107) 02/04/22 04:38 Carbon Dioxide 25 mmol/L (22-30) 02/04/22 04:38 Anion Gap 15 mmol/L 02/04/22 04:38 BUN 10 mg/dL (7-17) 02/04/22 04:38 Creatinine 0.5 mg/dL (0.6-1.2) L 02/04/22 11:00 Estimated GFR > 60 ml/min 02/04/22 11:00 BUN/Creatinine Ratio 20 % 02/04/22 04:38 Glucose 86 mg/dL (65-100) 02/04/22 04:38 Calcium 9.0 mg/dL (8.4-10.2) 02/04/22 04:38 Magnesium 1.70 mg/dL (1.7-2.3) 02/03/22 12:48 Total Bilirubin 0.40 mg/dL (0.1-1.2) 02/04/22 04:38 AST 13 units/L (5-40) 02/04/22 04:38 ALT 11 units/L (7-56) 02/04/22 04:38 Alkaline Phosphatase 59 units/L (35-129) 02/04/22 04:38 Troponin T < 0.010 ng/mL (0.00-0.029) 02/04/22 11:00 NT-Pro-B Natriuret Pep 606.2 pg/mL (0-900) 02/03/22 12:42 Total Protein 6.3 g/dL (6.3-8.2) 02/04/22 04:38 Albumin 3.4 g/dL (3.9-5) L 02/04/22 04:38 Albumin/Globulin Ratio 1.2 % 02/04/22 04:38 TSH 2.040 mlU/mL (0.270-4.200) 02/03/22 12:42 Crespo/IV: Voiding Method Toilet Active Medications - Current Medications Current Medications: Generic Name Dose Route Start Last Admin Trade Name Freq PRN Reason Stop Dose Admin Acetaminophen 650 mg 02/03/22 19:41 Acetaminophen 325 Mg Tab PO Q4H PRN Pain MILD(1-3)/Fever >100.5/ESTRADA Apixaban 5 mg 02/04/22 11:30 02/05/22 10:05 Apixaban 5 Mg Tab PO 5 mg Q12HR ADELE Administration Protocol Diltiazem HCl 30 mg 02/05/22 14:19 Diltiazem 60 Mg Tab PO Q6HR ADELE Famotidine 20 mg 02/03/22 22:00 02/05/22 10:05 Famotidine 20 Mg Tab PO 20 mg BID ADELE Administration Flecainide Acetate 100 mg 02/05/22 09:45 02/05/22 12:14 Flecainide 100 Mg Tab PO Not Given Q12HR ADELE Sodium Chloride 1,000 mls @ 75 mls/hr 02/03/22 19:45 Nacl 0.9% 1000 Ml IV DIRECT ADELE Morphine Sulfate 2 mg 02/03/22 19:41 Morphine 2 Mg/1 Ml Inj IV Q4H PRN Pain, Moderate (4-6) Ondansetron HCl 4 mg 02/03/22 19:41 Ondansetron 4 Mg/2 Ml Inj IV Q8H PRN Nausea And Vomiting Sodium Chloride 10 ml 02/03/22 22:00 02/04/22 21:23 Sodium Chloride 0.9% 10 Ml Flush Syringe IV 10 ml BID ADELE Administration Sodium Chloride 10 ml 02/03/22 19:41 Sodium Chloride 0.9% 10 Ml Flush Syringe IV PRN PRN LINE FLUSH
[2022-02-06] MEDS: dilTIAZem 60 MG TAB PO SCH ×6 (00:05→23:02)
[2022-02-06 05:49] LABS: Hematocrit 37.5 % (30.3-42.9); Mean Corpuscular HGB Conc 32 % (30-34); Mean Corpuscular Volume 95 fl (79-97); Platelet Count 224 K/mm3 (140-440); Red Blood Count 3.96 M/mm3 (3.65-5.03); Red Cell Distribution Width 13.4 % (13.2-15.2)
--- NOTE | 2022-02-06 09:07 | Progress Note ---
Assessment and Plan Assessment and plan: --Atrial fibrillation with RVR/new onset Current Visit: Yes Status: Acute s/p IV Cardizem, transition to oral Cardizem Cardiology added flecainide, heart rate slightly decreased however continues to have intermittent rapid ventricular rate Today 02/06/2022 cardiology added IV digoxin 2 doses, heart rate last 6 to 8 hours in 80s per minute Anticoagulation with Eliquis Closely monitor overnight and discharge a.m. if stable -- Acute coronary syndrome Current Visit: Yes Status: Acute Patient for serial troponins and Lexiscan in the morning Lexiscan negative for ischemia, normal LV function --Mild hypoalbuminemia ; albumin 3.2 current Visit: Yes Status: Chronic Nutrition supplements and supportive care --DVT prophylaxis On Eliquis -Morbid obesity; BMI 55.3 Current Visit: Yes Status: Chronic Dietary modification, exercise as tolerated and weight reduction When medically stable, patient may benefit from bariatric surgical evaluation For weight reduction program when she is medically stable -Advance care planning +32 min Disease education conducted, care plan discussed, diagnosis discussed, prognosis discussed. Patient is full code. Leather Flesher evaluation and recommendations discussed with the patient And I also discussed the importance of diet modification, exercise as tolerated, weight reduction Patient had few questions answered all of them verbalized understanding Patient acknowledged understanding and in agreement with care plan. +32 minutes. Closely monitor the patient, if heart rate is well controlled Patient may be discharged tomorrow if stable per cardiology Plan of care reviewed with the patient and her nurse As well discharge in 1 to 2 days if stable 02/05; patient was started on flecainide 100 mg every 12 hours and decrease Cardizem dose per cardiology Currently she is on A. fib with rapid ventricular rate, closely monitor 02/06; I checked with monitor nurse, patient continues to be in A. fib with intermittent rapid ventricular rate Patient is on Cardizem, flecainide per cardiology, today added IV digoxin, closely monitor History Interval history: Patient continues to have intermittent rapid ventricular rate Currently on Cardizem and flecainide Cardiology added IV digoxin Patient feels better anxious to go home Vital signs noted Hospitalist Physical - Constitutional Vitals: Temp Pulse Resp BP Pulse Ox 97.7 F 116 H 18 109/79 100 02/06/22 04:14 02/06/22 06:00 02/06/22 04:14 02/06/22 04:14 02/06/22 04:14 General appearance: Present: no acute distress, well-nourished, obese (Morbidly obese) - EENT Eyes: Present: PERRL, EOM intact - Neck Neck: Present: supple, normal ROM - Respiratory Respiratory effort: normal Respiratory: bilateral: diminished, negative: rales, rhonchi, wheezing - Cardiovascular Rhythm: irregularly irregular (Tachycardia) - Extremities Extremities: no ischemia, No edema - Abdominal General gastrointestinal: soft, non-tender, non-distended, normal bowel sounds - Integumentary Integumentary: Present: clear, warm - Psychiatric Psychiatric: appropriate mood/affect, cooperative - Neurologic Neurologic: CNII-XII intact, moves all extremities HEART Score - HEART Score EKG: Normal Age: 45-65 Risk factors: 1-2 risk factors Troponin: Troponin T < 0.010 ng/mL (0.00-0.029) 02/04/22 11:00 Troponin: < normal limit - Critical Actions Critical Actions: 4-6 pts:12-16.6% risk of adverse cardiac event. Should be admitted Results - Labs CBC & Chem 7: 02/06/22 05:03 02/04/22 11:00 Labs: Laboratory Last Values WBC 6.8 K/mm3 (4.5-11.0) 02/06/22 05:03 RBC 3.96 M/mm3 (3.65-5.03) 02/06/22 05:03 Hgb 12.0 gm/dl (10.1-14.3) 02/06/22 05:03 Hct 37.5 % (30.3-42.9) 02/06/22 05:03 MCV 95 fl (79-97) 02/06/22 05:03 MCH 30 pg (28-32) 02/06/22 05:03 MCHC 32 % (30-34) 02/06/22 05:03 RDW 13.4 % (13.2-15.2) 02/06/22 05:03 Plt Count 224 K/mm3 (140-440) 02/06/22 05:03 Lymph % (Auto) 37.5 % (13.4-35.0) H 02/03/22 12:42 [place] % (Auto) 10.6 % (0.0-7.3) H 02/03/22 12:42 Eos % (Auto) 0.5 % (0.0-4.3) 02/03/22 12:42 Baso % (Auto) 0.2 % (0.0-1.8) 02/03/22 12:42 Lymph # (Auto) 2.3 K/mm3 (1.2-5.4) 02/03/22 12:42 [place] # (Auto) 0.6 K/mm3 (0.0-0.8) 02/03/22 12:42 Eos # (Auto) 0.0 K/mm3 (0.0-0.4) 02/03/22 12:42 Baso # (Auto) 0.0 K/mm3 (0.0-0.1) 02/03/22 12:42 Seg Neutrophils % 51.2 % (40.0-70.0) 02/03/22 12:42 Seg Neutrophils # 3.1 K/mm3 (1.8-7.7) 02/03/22 12:42 PT 13.9 Sec. (12.2-14.9) 02/04/22 11:00 INR 0.97 (0.87-1.13) 02/04/22 11:00 APTT 28.6 Sec. (24.2-36.6) 02/04/22 11:00 Sodium 142 mmol/L (137-145) 02/04/22 04:38 Potassium 4.1 mmol/L (3.6-5.0) 02/04/22 04:38 Chloride 106.5 mmol/L (98-107) 02/04/22 04:38 Carbon Dioxide 25 mmol/L (22-30) 02/04/22 04:38 Anion Gap 15 mmol/L 02/04/22 04:38 BUN 10 mg/dL (7-17) 02/04/22 04:38 Creatinine 0.5 mg/dL (0.6-1.2) L 02/04/22 11:00 Estimated GFR > 60 ml/min 02/04/22 11:00 BUN/Creatinine Ratio 20 % 02/04/22 04:38 Glucose 86 mg/dL (65-100) 02/04/22 04:38 Calcium 9.0 mg/dL (8.4-10.2) 02/04/22 04:38 Magnesium 1.70 mg/dL (1.7-2.3) 02/03/22 12:48 Total Bilirubin 0.40 mg/dL (0.1-1.2) 02/04/22 04:38 AST 13 units/L (5-40) 02/04/22 04:38 ALT 11 units/L (7-56) 02/04/22 04:38 Alkaline Phosphatase 59 units/L (35-129) 02/04/22 04:38 Troponin T < 0.010 ng/mL (0.00-0.029) 02/04/22 11:00 NT-Pro-B Natriuret Pep 606.2 pg/mL (0-900) 02/03/22 12:42 Total Protein 6.3 g/dL (6.3-8.2) 02/04/22 04:38 Albumin 3.4 g/dL (3.9-5) L 02/04/22 04:38 Albumin/Globulin Ratio 1.2 % 02/04/22 04:38 TSH 2.040 mlU/mL (0.270-4.200) 02/03/22 12:42 Crespo/IV: Voiding Method Toilet Active Medications - Current Medications Current Medications: Generic Name Dose Route Start Last Admin Trade Name Freq PRN Reason Stop Dose Admin Acetaminophen 650 mg 02/03/22 19:41 Acetaminophen 325 Mg Tab PO Q4H PRN Pain MILD(1-3)/Fever >100.5/ESTRADA Apixaban 5 mg 02/04/22 11:30 02/05/22 22:14 Apixaban 5 Mg Tab PO 5 mg Q12HR ADELE Administration Protocol Digoxin 0.25 mg 02/06/22 08:45 Digoxin 0.5 Mg/2 Ml Inj IV 02/06/22 12:01 Q6HR ADELE Diltiazem HCl 30 mg 02/05/22 14:19 02/06/22 06:34 Diltiazem 60 Mg Tab PO 30 mg Q6HR ADELE Administration Famotidine 20 mg 02/03/22 22:00 02/05/22 22:14 Famotidine 20 Mg Tab PO 20 mg BID ADELE Administration Flecainide Acetate 100 mg 02/05/22 09:45 02/05/22 22:14 Flecainide 100 Mg Tab PO 100 mg Q12HR ADELE Administration Sodium Chloride 1,000 mls @ 75 mls/hr 02/03/22 19:45 Nacl 0.9% 1000 Ml IV DIRECT ADELE Morphine Sulfate 2 mg 02/03/22 19:41 Morphine 2 Mg/1 Ml Inj IV Q4H PRN Pain, Moderate (4-6) Ondansetron HCl 4 mg 02/03/22 19:41 Ondansetron 4 Mg/2 Ml Inj IV Q8H PRN Nausea And Vomiting Sodium Chloride 10 ml 02/03/22 22:00 02/06/22 08:05 Sodium Chloride 0.9% 10 Ml Flush Syringe IV Not Given BID ADELE Sodium Chloride 10 ml 02/03/22 19:41 Sodium Chloride 0.9% 10 Ml Flush Syringe IV PRN PRN LINE FLUSH
[2022-02-06] MEDS: FAMOTIDINE 20 MG TAB PO SCH ×2 (11:04→23:01)
[2022-02-06] MEDS: FLECAINIDE 100 MG TAB PO SCH ×2 (11:04→22:51)
[2022-02-06] MEDS: APIXABAN 5 MG TAB PO SCH ×2 (11:04→22:50)
[2022-02-06] MEDS: DIGOXIN 0.5 MG/2 ML INJ IV SCH ×2 (11:04→17:00)
--- NOTE | 2022-02-06 14:18 | Progress Note ---
Assessment and Plan Will give acouple of Digoxin doses to slow HR down. Otherwise, will continue Flecainide and Diltiazem with the hope of conversion to SR. - Patient Problems (1) Atrial fibrillation with RVR Current Visit: Yes Status: Acute (2) New onset a-fib Current Visit: Yes Status: Acute (3) Chest pain Current Visit: Yes Status: Acute (4) Pericardial effusion Current Visit: Yes Status: Acute Subjective Date of service: 02/06/22 Principal diagnosis: New onset AF with RVR, CP Interval history: No new complaint. HR increases with activity. Objective Vital Signs Temp Pulse Resp BP Pulse Ox 02/06/22 12:06 98.3 F 80 96/60 100 02/06/22 12:00 96 02/06/22 08:05 97.9 F 88 118/71 99 02/06/22 06:00 116 H 02/06/22 04:14 97.7 F 79 18 109/79 100 02/05/22 23:00 98 02/05/22 22:54 98.9 F 104 H 20 123/70 99 02/05/22 21:00 106 H 02/05/22 20:02 98.8 F 107 H 20 115/75 99 02/05/22 18:12 110 H 115/72 02/05/22 15:41 97.8 F 96 H 16 114/70 100 - Physical Examination General: No Apparent Distress HEENT: Positive: EOMI, Normocephaly, Mucus Membranes Moist Neck: Positive: neck supple, trachea midline Cardiac: Positive: irregularly irregular, S1/S2 Lungs: Positive: clear to auscultation Neuro: Positive: Grossly Intact Abdomen: Positive: Soft, Active Bowel Sounds. Negative: Tender Skin: Positive: Clear. Negative: Rash Musculoskeletal: Normal Range of Motion Extremities: Absent: edema - Labs and Meds CBC 02/06/22 Range/Units 05:03 WBC 6.8 (4.5-11.0) K/mm3 RBC 3.96 (3.65-5.03) M/mm3 Hgb 12.0 (10.1-14.3) gm/dl Hct 37.5 (30.3-42.9) % Plt Count 224 (140-440) K/mm3 - Imaging and Cardiology EKG: report reviewed (Atrial fibrillation with RVR no acute ST-T wave changes) Echo: image reviewed - Telemetry EKG Rhythm: Atrial Fibrillation (with RVR)
[2022-02-06] MEDS ORDERED: DIGOXIN 0.5 MG/2 ML INJ IV ONE (17:19)
[2022-02-07] MEDS: dilTIAZem 60 MG TAB PO SCH ×3 (06:39→18:42)
[2022-02-07] MEDS: APIXABAN 5 MG TAB PO SCH ×2 (10:14→22:00)
[2022-02-07] MEDS: FAMOTIDINE 20 MG TAB PO SCH ×2 (10:14→22:00)
[2022-02-07] MEDS: SODIUM CHLORIDE 0.9% 1000 ML 1,000 ML IV SCH ×2 (10:18→22:12)
[2022-02-07] MEDS: FLECAINIDE 100 MG TAB PO SCH ×2 (10:19→22:00)
--- NOTE | 2022-02-07 11:02 | Progress Note ---
Assessment and Plan Patient is 56-year-old female with no past medical history presents to the ED yesterday with complaint of palpitations/chest pounding associated with some shortness of breath while at work that day New onset A. fib with RVR Obesity Echo 02/04/2022-EF 55 to 60%. Right ventricular systolic function is normal. Mild tricuspid regurgitation. A small pericardial effusion is present Lexiscan MPI stress test 02/04/2022-negative for ischemia with normal LV size and function and no regional wall motion abnormality Plan: Patient remains in A. fib rate better controlled after initiation of digoxin IV yesterday. Will initiate digoxin 0.125 mg p.o. daily Patient on flecainide will order repeat EKG Continue diltiazem 60 mg p.o. every 6 hours for rate control, flecainide 100 mg p.o. twice daily Continue anticoagulation with Eliquis If rate remains controlled and patient stable possible discharge in a.m. Patient has a follow up with with Dr. Freire, [facility], on 02/14/2022 at 9:30am in our [place] location. Patient seen in conjunction with Dr. Cadena who agrees with this plan of care - Patient Problems (1) Obesity Current Visit: Yes Status: Acute (2) HLD (hyperlipidemia) Current Visit: Yes Status: Acute (3) Atrial fibrillation with RVR Current Visit: Yes Status: Acute (4) New onset a-fib Current Visit: Yes Status: Acute Subjective Date of service: 02/07/22 Principal diagnosis: New onset AF with RVR, CP Interval history: Patient resting in bed in no acute distress. Patient reports feeling better this a.m. Patient currently trending A. fib 80s on monitor with short burst overnight into A. fib rate 120s Objective Vital Signs Temp Pulse Resp BP Pulse Ox 02/07/22 07:18 98.0 F 105 H 18 133/81 100 02/07/22 06:39 78 106/78 02/07/22 03:41 98.5 F 78 18 106/78 99 02/07/22 00:00 92 02/06/22 23:13 98.7 F 93 H 20 101/74 100 02/06/22 22:00 82 02/06/22 20:11 99.3 F 108 H 20 96/66 100 02/06/22 15:57 98.1 F 101 H 18 98/67 99 02/06/22 12:06 98.3 F 80 96/60 100 02/06/22 12:00 96 - Physical Examination General: No Apparent Distress HEENT: Positive: EOMI, Normocephaly, Mucus Membranes Moist Neck: Positive: neck supple, trachea midline Cardiac: Positive: irregularly irregular Lungs: Positive: Normal Breath Sounds Neuro: Positive: Grossly Intact Abdomen: Positive: Soft, Active Bowel Sounds. Negative: Tender Skin: Positive: Clear. Negative: Rash Musculoskeletal: Normal Range of Motion Extremities: Absent: edema - Labs and Meds Comprehensive Metabolic Panel 02/07/22 Range/Units 05:26 Creatinine 0.5 L (0.6-1.2) mg/dL - Imaging and Cardiology EKG: report reviewed (Atrial fibrillation with RVR no acute ST-T wave changes) Echo: report reviewed, image reviewed - Telemetry EKG Rhythm: Atrial Fibrillation - EKG Supraventricular dysrhythmia: atrial fibrillation
[2022-02-07] MEDS: DIGOXIN 0.125 MG TAB PO SCH (16:52)
--- NOTE | 2022-02-07 18:57 | Progress Note ---
Assessment and Plan Assessment and plan: --Atrial fibrillation with RVR/new onset Current Visit: Yes Status: Acute Rate controlled, patient is on Cardizem , flecainide and digoxin Chronic anticoagulation with Eliquis s/p IV Cardizem, transition to oral Cardizem Cardiology added flecainide, and later digoxin Possible discharge tomorrow if stable -- Acute coronary syndrome Current Visit: Yes Status: Acute Patient for serial troponins and Lexiscan in the morning Lexiscan negative for ischemia, normal LV function --Mild hypoalbuminemia ; albumin 3.2 current Visit: Yes Status: Chronic Nutrition supplements and supportive care --DVT prophylaxis On Eliquis -Morbid obesity; BMI 55.3 Current Visit: Yes Status: Chronic Dietary modification, exercise as tolerated and weight reduction When medically stable, patient may benefit from bariatric surgical evaluation For weight reduction program when she is medically stable -Advance care planning +32 min Disease education conducted, care plan discussed, diagnosis discussed, prognosis discussed. Patient is full code. Hospice Clinical Supervisor evaluation and recommendations discussed with the patient And I also discussed the importance of diet modification, exercise as tolerated, weight reduction Patient had few questions answered all of them verbalized understanding Patient acknowledged understanding and in agreement with care plan. +32 minutes. Closely monitor the patient, if heart rate is well controlled Patient may be discharged tomorrow if stable per cardiology Plan of care reviewed with the patient and her nurse As well discharge in 1 to 2 days if stable 02/05; patient was started on flecainide 100 mg every 12 hours and decrease Cardizem dose per cardiology Currently she is on A. fib with rapid ventricular rate, closely monitor 02/06; I checked with monitor nurse, patient continues to be in A. fib with intermittent rapid ventricular rate Patient is on Cardizem, flecainide per cardiology, today added IV digoxin, closely monitor 02/07; patient heart rate in control, continue Cardizem, flecainide and digoxin Continue Eliquis, possible discharge home tomorrow if stable Hospitalist Physical - Constitutional Vitals: Temp Pulse Resp BP Pulse Ox 98.4 F 90 18 105/67 98 02/07/22 16:00 02/07/22 18:42 02/07/22 16:00 02/07/22 18:42 02/07/22 10:41 General appearance: Present: no acute distress, well-nourished, obese (Morbidly obese) - EENT Eyes: Present: PERRL, EOM intact - Neck Neck: Present: supple, normal ROM - Respiratory Respiratory effort: normal Respiratory: bilateral: diminished, negative: rales, rhonchi, wheezing - Cardiovascular Rhythm: regular Heart Sounds: Present: S1 & S2 - Extremities Extremities: no ischemia, No edema - Abdominal General gastrointestinal: soft, non-tender, non-distended, normal bowel sounds - Integumentary Integumentary: Present: clear, warm - Psychiatric Psychiatric: appropriate mood/affect, cooperative - Neurologic Neurologic: CNII-XII intact, moves all extremities HEART Score - HEART Score EKG: Normal Age: 45-65 Risk factors: 1-2 risk factors Troponin: Troponin T < 0.010 ng/mL (0.00-0.029) 02/04/22 11:00 Troponin: < normal limit - Critical Actions Critical Actions: 4-6 pts:12-16.6% risk of adverse cardiac event. Should be admitted Results - Labs CBC & Chem 7: 02/06/22 05:03 02/07/22 05:26 Labs: Laboratory Last Values WBC 6.8 K/mm3 (4.5-11.0) 02/06/22 05:03 RBC 3.96 M/mm3 (3.65-5.03) 02/06/22 05:03 Hgb 12.0 gm/dl (10.1-14.3) 02/06/22 05:03 Hct 37.5 % (30.3-42.9) 02/06/22 05:03 MCV 95 fl (79-97) 02/06/22 05:03 MCH 30 pg (28-32) 02/06/22 05:03 MCHC 32 % (30-34) 02/06/22 05:03 RDW 13.4 % (13.2-15.2) 02/06/22 05:03 Plt Count 224 K/mm3 (140-440) 02/06/22 05:03 Lymph % (Auto) 37.5 % (13.4-35.0) H 02/03/22 12:42 [place] % (Auto) 10.6 % (0.0-7.3) H 02/03/22 12:42 Eos % (Auto) 0.5 % (0.0-4.3) 02/03/22 12:42 Baso % (Auto) 0.2 % (0.0-1.8) 02/03/22 12:42 Lymph # (Auto) 2.3 K/mm3 (1.2-5.4) 02/03/22 12:42 [place] # (Auto) 0.6 K/mm3 (0.0-0.8) 02/03/22 12:42 Eos # (Auto) 0.0 K/mm3 (0.0-0.4) 02/03/22 12:42 Baso # (Auto) 0.0 K/mm3 (0.0-0.1) 02/03/22 12:42 Seg Neutrophils % 51.2 % (40.0-70.0) 02/03/22 12:42 Seg Neutrophils # 3.1 K/mm3 (1.8-7.7) 02/03/22 12:42 PT 13.9 Sec. (12.2-14.9) 02/04/22 11:00 INR 0.97 (0.87-1.13) 02/04/22 11:00 APTT 28.6 Sec. (24.2-36.6) 02/04/22 11:00 Sodium 142 mmol/L (137-145) 02/04/22 04:38 Potassium 4.1 mmol/L (3.6-5.0) 02/04/22 04:38 Chloride 106.5 mmol/L (98-107) 02/04/22 04:38 Carbon Dioxide 25 mmol/L (22-30) 02/04/22 04:38 Anion Gap 15 mmol/L 02/04/22 04:38 BUN 10 mg/dL (7-17) 02/04/22 04:38 Creatinine 0.5 mg/dL (0.6-1.2) L 02/07/22 05:26 Estimated GFR > 60 ml/min 02/07/22 05:26 BUN/Creatinine Ratio 20 % 02/04/22 04:38 Glucose 86 mg/dL (65-100) 02/04/22 04:38 Calcium 9.0 mg/dL (8.4-10.2) 02/04/22 04:38 Magnesium 1.70 mg/dL (1.7-2.3) 02/03/22 12:48 Total Bilirubin 0.40 mg/dL (0.1-1.2) 02/04/22 04:38 AST 13 units/L (5-40) 02/04/22 04:38 ALT 11 units/L (7-56) 02/04/22 04:38 Alkaline Phosphatase 59 units/L (35-129) 02/04/22 04:38 Troponin T < 0.010 ng/mL (0.00-0.029) 02/04/22 11:00 NT-Pro-B Natriuret Pep 606.2 pg/mL (0-900) 02/03/22 12:42 Total Protein 6.3 g/dL (6.3-8.2) 02/04/22 04:38 Albumin 3.4 g/dL (3.9-5) L 02/04/22 04:38 Albumin/Globulin Ratio 1.2 % 02/04/22 04:38 TSH 2.040 mlU/mL (0.270-4.200) 02/03/22 12:42 Crespo/IV: Voiding Method Toilet Active Medications - Current Medications Current Medications: Generic Name Dose Route Start Last Admin Trade Name Freq PRN Reason Stop Dose Admin Acetaminophen 650 mg 02/03/22 19:41 Acetaminophen 325 Mg Tab PO Q4H PRN Pain MILD(1-3)/Fever >100.5/ESTRADA Apixaban 5 mg 02/04/22 11:30 02/07/22 10:14 Apixaban 5 Mg Tab PO 5 mg Q12HR ADELE Administration Protocol Digoxin 0.125 mg 02/07/22 17:00 02/07/22 16:52 Digoxin 0.125 Mg Tab PO 0.125 mg DAILY@1700 ADELE Administration Diltiazem HCl 30 mg 02/05/22 14:19 02/07/22 18:42 Diltiazem 60 Mg Tab PO 30 mg Q6HR ADELE Administration Famotidine 20 mg 02/03/22 22:00 02/07/22 10:14 Famotidine 20 Mg Tab PO 20 mg BID ADELE Administration Flecainide Acetate 100 mg 02/05/22 09:45 02/07/22 10:19 Flecainide 100 Mg Tab PO 100 mg Q12HR ADELE Administration Sodium Chloride 1,000 mls @ 75 mls/hr 02/03/22 19:45 02/07/22 10:18 Nacl 0.9% 1000 Ml IV 75 mls/hr DIRECT ADELE Administration Morphine Sulfate 2 mg 02/03/22 19:41 Morphine 2 Mg/1 Ml Inj IV Q4H PRN Pain, Moderate (4-6) Ondansetron HCl 4 mg 02/03/22 19:41 Ondansetron 4 Mg/2 Ml Inj IV Q8H PRN Nausea And Vomiting Sodium Chloride 10 ml 02/03/22 22:00 02/07/22 10:18 Sodium Chloride 0.9% 10 Ml Flush Syringe IV 10 ml BID ADELE Administration Sodium Chloride 10 ml 02/03/22 19:41 Sodium Chloride 0.9% 10 Ml Flush Syringe IV PRN PRN LINE FLUSH
[2022-02-08] MEDS: dilTIAZem 60 MG TAB PO SCH ×4 (00:15→17:27)
[2022-02-08 05:36] LABS: Hemoglobin 11.7 gm/dl (10.1-14.3); Mean Corpuscular HGB Conc 32 % (30-34); Mean Corpuscular Volume 95 fl (79-97); Platelet Count 210 K/mm3 (140-440); Red Blood Count 3.91 M/mm3 (3.65-5.03); Red Cell Distribution Width 13.5 % (13.2-15.2)
[2022-02-08] MEDS: APIXABAN 5 MG TAB PO SCH ×2 (09:27→21:19)
[2022-02-08] MEDS: FAMOTIDINE 20 MG TAB PO SCH ×2 (09:27→21:19)
[2022-02-08] MEDS: FLECAINIDE 100 MG TAB PO SCH ×2 (09:28→21:18)
--- NOTE | 2022-02-08 10:08 | Electrocardiograph Report ---
[facility] Test Date: 2022-02-07 Test Time: 11:57:56 Pat Name: JEAN CARLOS FERNANDO Department: Room: A464 1 Gender: F Coordinate Measuring Equipment Operator: CHRISTINE : [id number] Requested By: LONA SERRANO Order Number: [id number] Reading MD: Ger Moya Measurements Intervals [place] Rate: 94 P: DC: QRS: 1 QRSD: 80 T: 23 QT: 370 QTc: 464 Interpretive Statements Atrial fibrillation Compared to ECG 02/03/2022 12:23:45 No significant changes Electronically Signed On 02-08-2022 10:08:11 EDT by Ger Moya
[2022-02-08] MEDS: SODIUM CHLORIDE 0.9% 1000 ML 1,000 ML IV SCH ×2 (11:08→21:18)
--- NOTE | 2022-02-08 12:35 | Progress Note ---
Assessment and Plan Patient is 56-year-old female with no past medical history presents to the ED yesterday with complaint of palpitations/chest pounding associated with some shortness of breath while at work that day New onset A. fib with RVR Obesity Echo 02/04/2022-EF 55 to 60%. Right ventricular systolic function is normal. Mild tricuspid regurgitation. A small pericardial effusion is present Lexiscan MPI stress test 02/04/2022-negative for ischemia with normal LV size and function and no regional wall motion abnormality Plan: Telemetry reviewed patient remains in A. fib rate controlled 80s. However when patient got up to ambulate this a.m. patient's heart rate shot up A. fib with RVR rate 160s and patient reported some palpitations Will initiate metoprolol 25 mg p.o. twice daily for rate control. Continue to monitor Continue diltiazem 60 mg p.o. every 6 hours for rate control, flecainide 100 mg p.o. twice daily,digoxin 0.125 mg p.o. daily Continue anticoagulation with Eliquis Patient has a follow up with with Dr. Freire, [facility], on 02/14/2022 at 9:30am in our [place] location. Patient seen in conjunction with Dr. Cadena who agrees with this plan of care - Patient Problems (1) Obesity Current Visit: Yes Status: Acute (2) HLD (hyperlipidemia) Current Visit: Yes Status: Acute (3) Atrial fibrillation with RVR Current Visit: Yes Status: Acute (4) New onset a-fib Current Visit: Yes Status: Acute Subjective Date of service: 02/08/22 Principal diagnosis: New onset AF with RVR, CP Interval history: Patient resting in bed in no acute distress. Patient currently trending A. fib 80s on monitor Objective Vital Signs Temp Pulse Resp BP BP Pulse Ox 02/08/22 12:01 98.5 F 14 115/74 98 02/08/22 09:00 98 02/08/22 08:50 98.0 F 83 18 115/82 99 02/08/22 03:26 97.9 F 69 16 94/49 98 02/07/22 23:00 97.8 F 18 100/66 99 02/07/22 22:00 74 98 02/07/22 19:15 97.6 F 107 H 18 100/61 97 02/07/22 18:42 90 105/67 02/07/22 16:52 90 02/07/22 16:00 98.4 F 82 18 105/67 02/07/22 12:49 106 H - Physical Examination General: No Apparent Distress HEENT: Positive: EOMI, Normocephaly, Mucus Membranes Moist Neck: Positive: neck supple, trachea midline Cardiac: Positive: irregularly irregular Lungs: Positive: Normal Breath Sounds Neuro: Positive: Grossly Intact Abdomen: Positive: Soft, Active Bowel Sounds. Negative: Tender Skin: Positive: Clear. Negative: Rash Musculoskeletal: Normal Range of Motion Extremities: Absent: edema - Labs and Meds CBC 02/08/22 Range/Units 04:58 WBC 5.6 (4.5-11.0) K/mm3 RBC 3.91 (3.65-5.03) M/mm3 Hgb 11.7 (10.1-14.3) gm/dl Hct 37.0 (30.3-42.9) % Plt Count 210 (140-440) K/mm3 - Imaging and Cardiology EKG: report reviewed (Atrial fibrillation with RVR no acute ST-T wave changes) Echo: report reviewed, image reviewed - Telemetry EKG Rhythm: Atrial Fibrillation - EKG Supraventricular dysrhythmia: atrial fibrillation
[2022-02-08] MEDS: METOPROLOL TARTRATE 25 MG TAB PO SCH ×2 (13:31→21:19)
[2022-02-08] MEDS: DIGOXIN 0.125 MG TAB PO SCH (17:27)
--- NOTE | 2022-02-08 17:46 | Progress Note ---
Assessment and Plan Assessment and plan: --Atrial fibrillation with RVR/new onset Current Visit: Yes Status: Acute Patient is on Cardizem , flecainide and digoxin Chronic anticoagulation with Eliquis s/p IV Cardizem, transition to oral Cardizem Cardiology added flecainide, and later digoxin Patient's heart rate went up to 160s upon ambulation Improved with resting, cardiology added metoprolol Monitor overnight possible discharge morning if stable -- Acute coronary syndrome Current Visit: Yes Status: Acute Patient for serial troponins and Lexiscan in the morning Lexiscan negative for ischemia, normal LV function --Mild hypoalbuminemia ; albumin 3.2 current Visit: Yes Status: Chronic Nutrition supplements and supportive care --DVT prophylaxis On Eliquis -Morbid obesity; BMI 55.3 Current Visit: Yes Status: Chronic Dietary modification, exercise as tolerated and weight reduction When medically stable, patient may benefit from bariatric surgical evaluation For weight reduction program when she is medically stable -Advance care planning +32 min Disease education conducted, care plan discussed, diagnosis discussed, prognosis discussed. Patient is full code. Monogram Technician evaluation and recommendations discussed with the patient And I also discussed the importance of diet modification, exercise as tolerated, weight reduction Patient had few questions answered all of them verbalized understanding Patient acknowledged understanding and in agreement with care plan. +32 minute s. Closely monitor the patient, if heart rate is well controlled Patient may be discharged tomorrow if stable per cardiology Plan of care reviewed with the patient and her nurse As well discharge in 1 to 2 days if stable Brief history and daily hospital course Palpitations and chest pain since the morning of admission 56-year-old -[place] female with no significant past except for hyperlipidemia comes in for palpitations and chest pain since a.m. Palpitations are intermittent. Chest pain is intermittent. In the emergency room patient had a atrial fibrillation with rapid ventricular rate. Also has some mild shortness of breath. No diaphoresis. No radiation. No coronary artery disease or stents in the past. Cardiology evaluated and started on multiple medications like Cardizem, digoxin, flecainide well-controlled heart rate, however upon ambulation today patient's heart rate jumped to 160/min with some symptoms which resolved after resting. Cardiology added metoprolol to the regimen, follow clinically 02/05; patient was started on flecainide 100 mg every 12 hours and decrease Cardizem dose per cardiology Currently she is on A. fib with rapid ventricular rate, closely monitor 02/06; I checked with monitor nurse, patient continues to be in A. fib with intermittent rapid ventricular rate Patient is on Cardizem, flecainide per cardiology, today added IV digoxin, closely monitor 02/07; patient heart rate in control, continue Cardizem, flecainide and digoxin Continue Eliquis, possible discharge home tomorrow if stable 02/08; metoprolol added today to the regimen, closely monitor, if heart rate is well controlled and patient is stable May be discharged home tomorrow, cardiology consult recommendations noted and appreciated Disposition; discharge when cleared by cardiology History Interval history: I have seen and examined the patient at the bedside Patient's chart and medications reviewed Patient with A. fib with rapid ventricular rate on multiple medications Cardizem, flecainide, digoxin with rate control ,patient is also on Eliquis This morning patient ambulated per cardiology recommendations After walking short distance, patient suddenly developed tachycardia with heart rate of 160 Upon resting patient's heart rate came back to normal range. Cardiology added metoprolol Patient denies any chest pain or shortness of breath Denies any headache or dizziness Hospitalist Physical - Constitutional Vitals: Temp Pulse Resp BP Pulse Ox 98.5 F 83 14 115/74 98 02/08/22 12:01 02/08/22 08:50 02/08/22 12:01 02/08/22 12:01 02/08/22 12:01 General appearance: Present: no acute distress, well-nourished, obese (Morbidly obese) - EENT Eyes: Present: PERRL, EOM intact - Neck Neck: Present: supple, normal ROM - Respiratory Respiratory effort: normal Respiratory: bilateral: diminished, negative: rales, rhonchi, wheezing - Cardiovascular Rhythm: irregularly irregular Heart Sounds: Present: S1 & S2 (Tachycardia intermittent) - Extremities Extremities: no ischemia, No edema - Abdominal General gastrointestinal: soft, non-tender, non-distended, normal bowel sounds - Integumentary Integumentary: Present: clear, warm - Psychiatric Psychiatric: appropriate mood/affect, cooperative - Neurologic Neurologic: CNII-XII intact, moves all extremities HEART Score - HEART Score EKG: Normal Age: 45-65 Risk factors: 1-2 risk factors Troponin: Troponin T < 0.010 ng/mL (0.00-0.029) 02/04/22 11:00 Troponin: < normal limit - Critical Actions Critical Actions: 4-6 pts:12-16.6% risk of adverse cardiac event. Should be admitted Results - Labs CBC & Chem 7: 02/08/22 04:58 02/07/22 05:26 Labs: Laboratory Last Values WBC 5.6 K/mm3 (4.5-11.0) 02/08/22 04:58 RBC 3.91 M/mm3 (3.65-5.03) 02/08/22 04:58 Hgb 11.7 gm/dl (10.1-14.3) 02/08/22 04:58 Hct 37.0 % (30.3-42.9) 02/08/22 04:58 MCV 95 fl (79-97) 02/08/22 04:58 MCH 30 pg (28-32) 02/08/22 04:58 MCHC 32 % (30-34) 02/08/22 04:58 RDW 13.5 % (13.2-15.2) 02/08/22 04:58 Plt Count 210 K/mm3 (140-440) 02/08/22 04:58 Lymph % (Auto) 37.5 % (13.4-35.0) H 02/03/22 12:42 [place] % (Auto) 10.6 % (0.0-7.3) H 02/03/22 12:42 Eos % (Auto) 0.5 % (0.0-4.3) 02/03/22 12:42 Baso % (Auto) 0.2 % (0.0-1.8) 02/03/22 12:42 Lymph # (Auto) 2.3 K/mm3 (1.2-5.4) 02/03/22 12:42 [place] # (Auto) 0.6 K/mm3 (0.0-0.8) 02/03/22 12:42 Eos # (Auto) 0.0 K/mm3 (0.0-0.4) 02/03/22 12:42 Baso # (Auto) 0.0 K/mm3 (0.0-0.1) 02/03/22 12:42 Seg Neutrophils % 51.2 % (40.0-70.0) 02/03/22 12:42 Seg Neutrophils # 3.1 K/mm3 (1.8-7.7) 02/03/22 12:42 PT 13.9 Sec. (12.2-14.9) 02/04/22 11:00 INR 0.97 (0.87-1.13) 02/04/22 11:00 APTT 28.6 Sec. (24.2-36.6) 02/04/22 11:00 Sodium 142 mmol/L (137-145) 02/04/22 04:38 Potassium 4.1 mmol/L (3.6-5.0) 02/04/22 04:38 Chloride 106.5 mmol/L (98-107) 02/04/22 04:38 Carbon Dioxide 25 mmol/L (22-30) 02/04/22 04:38 Anion Gap 15 mmol/L 02/04/22 04:38 BUN 10 mg/dL (7-17) 02/04/22 04:38 Creatinine 0.5 mg/dL (0.6-1.2) L 02/07/22 05:26 Estimated GFR > 60 ml/min 02/07/22 05:26 BUN/Creatinine Ratio 20 % 02/04/22 04:38 Glucose 86 mg/dL (65-100) 02/04/22 04:38 Calcium 9.0 mg/dL (8.4-10.2) 02/04/22 04:38 Magnesium 1.70 mg/dL (1.7-2.3) 02/03/22 12:48 Total Bilirubin 0.40 mg/dL (0.1-1.2) 02/04/22 04:38 AST 13 units/L (5-40) 02/04/22 04:38 ALT 11 units/L (7-56) 02/04/22 04:38 Alkaline Phosphatase 59 units/L (35-129) 02/04/22 04:38 Troponin T < 0.010 ng/mL (0.00-0.029) 02/04/22 11:00 NT-Pro-B Natriuret Pep 606.2 pg/mL (0-900) 02/03/22 12:42 Total Protein 6.3 g/dL (6.3-8.2) 02/04/22 04:38 Albumin 3.4 g/dL (3.9-5) L 02/04/22 04:38 Albumin/Globulin Ratio 1.2 % 02/04/22 04:38 TSH 2.040 mlU/mL (0.270-4.200) 02/03/22 12:42 Crespo/IV: Voiding Method Toilet Active Medications - Current Medications Current Medications: Generic Name Dose Route Start Last Admin Trade Name Freq PRN Reason Stop Dose Admin Acetaminophen 650 mg 02/03/22 19:41 Acetaminophen 325 Mg Tab PO Q4H PRN Pain MILD(1-3)/Fever >100.5/ESTRADA Apixaban 5 mg 02/04/22 11:30 02/08/22 09:27 Apixaban 5 Mg Tab PO 5 mg Q12HR ADELE Administration Protocol Digoxin 0.125 mg 02/07/22 17:00 02/08/22 17:27 Digoxin 0.125 Mg Tab PO 0.125 mg DAILY@1700 ADELE Administration Diltiazem HCl 30 mg 02/05/22 14:19 02/08/22 17:27 Diltiazem 60 Mg Tab PO 30 mg Q6HR ADELE Administration Famotidine 20 mg 02/03/22 22:00 02/08/22 09:27 Famotidine 20 Mg Tab PO 20 mg BID ADELE Administration Flecainide Acetate 100 mg 02/05/22 09:45 02/08/22 09:28 Flecainide 100 Mg Tab PO 100 mg Q12HR ADELE Administration Sodium Chloride 1,000 mls @ 75 mls/hr 02/03/22 19:45 02/08/22 11:08 Nacl 0.9% 1000 Ml IV 75 mls/hr DIRECT ADELE Administration Metoprolol Tartrate 25 mg 02/08/22 14:00 02/08/22 13:31 Metoprolol Tartrate 25 Mg Tab PO 25 mg BID ADELE Administration Morphine Sulfate 2 mg 02/03/22 19:41 Morphine 2 Mg/1 Ml Inj IV Q4H PRN Pain, Moderate (4-6) Ondansetron HCl 4 mg 02/03/22 19:41 Ondansetron 4 Mg/2 Ml Inj IV Q8H PRN Nausea And Vomiting Sodium Chloride 10 ml 02/03/22 22:00 02/08/22 09:30 Sodium Chloride 0.9% 10 Ml Flush Syringe IV 10 ml BID ADELE Administration Sodium Chloride 10 ml 02/03/22 19:41 Sodium Chloride 0.9% 10 Ml Flush Syringe IV PRN PRN LINE FLUSH
[2022-02-09] MEDS: dilTIAZem 60 MG TAB PO SCH ×3 (03:49→11:33)
--- NOTE | 2022-02-09 08:22 | Discharge Summary ---
Providers - Providers Date of Admission: 02/05/22 15:48 Date of discharge: 02/09/22 Attending physician: VENTURA GAMBOA 02/03/22 19:41 Consult to Physician [CONS] Routine Comment: Consulting Provider: AFSANEH COOK Physician Instructions: Reason For Exam: Atrial fibrillation with RVR Primary care physician: CHAIN PERSON Hospitalization Condition: Stable Pertinent studies: Echo 02/04/2022-EF 55 to 60%. Right ventricular systolic function is normal. Mild tricuspid regurgitation. A small pericardial effusion is present Lexiscan MPI stress test 02/04/2022-negative for ischemia with normal LV size and function and no regional wall motion abnormality Hospital course: 56-year-old -[place] female with no significant past except for hyperlipidemia comes in to Er on 02/03/22 for palpitations and chest pain since a.m. Palpitations are intermittent. Chest pain is intermittent. In the emergency room patient noted with atrial fibrillation with rapid ventricular rate. Also has some mild shortness of breath. No diaphoresis. No radiation. No coronary artery disease or stents in the past. Cardiology evaluated and started on multiple medications like Cardizem, digoxin, flecainide. HR was well- controlled heart rate, however upon ambulation patient's heart rate jumped to 160/min with some symptoms which resolved after resting. Cardiology added metoprolol to the regimen, patient now well controlled with current regimen. Anticoagulated with xarelto, eliquis is not covered by her insurance. Will f/u with paper slitter in one week as outpt. Daily clinical course; 02/05; patient was started on flecainide 100 mg every 12 hours and decrease Cardizem dose per cardiology Currently she is on A. fib with rapid ventricular rate, closely monitor 02/06; I checked with monitor nurse, patient continues to be in A. fib with intermittent rapid ventricular rate Patient is on Cardizem, flecainide per cardiology, today added IV digoxin, closely monitor 02/07; patient heart rate in control, continue Cardizem, flecainide and digoxin Continue Eliquis, possible discharge home tomorrow if stable 02/08; metoprolol added today to the regimen, closely monitor, if heart rate is well controlled and patient is stable May be discharged home tomorrow, cardiology consult recommendations noted and appreciated 02/09: HR stable, vitals stable. d/c home today with outpt f/u with cardiology in one week. Disposition: 01 HOME / SELF CARE / HOMELESS Final Discharge Diagnosis (Prints w/discharge instructions): --Atrial fibrillation with RVR/new onset. --Atypical chest pain, due to GERD. --Mild hypoalbuminemia ; albumin 3.2. -Morbid obesity; BMI 55.3 Time spent for discharge: 34 minutes Core Measure Documentation - Palliative Care Palliative Care/ Comfort Measures: Not Applicable - Core Measures Any of the following diagnoses?: none Exam - Physical Exam Narrative exam: GENERAL: well-developed obese female lying on bed appeared to be in no discomfort. HEENT: Normocephalic. Atraumatic. No conjunctival congestion or icterus. Patient has moist mucous membranes. NECK: Supple. Trachea midline. CHEST/LUNGS: Clear to auscultated bilaterally, breathing nonlabored. No wheezes crackles or rhonchi. HEART/CARDIOVASCULAR: S1 and S2 positive. ABDOMEN: Abdomen is soft, nontender. Patient has normal bowel sounds. SKIN: There is no rash. Warm and dry. NEURO: No focal motor deficit. Follows command. MUSCULOSKELETAL: No joint effusion or tenderness. EXTRIMITY: No edema, no cyanosis or clubbing. PSYCH: Cooperative. - Constitutional Vitals: Temp Pulse Resp BP Pulse Ox 97.7 F 79 18 115/74 100 02/08/22 22:39 02/09/22 05:53 02/08/22 22:39 02/08/22 22:39 02/08/22 22:39 Plan Activity: advance as tolerated Weight Bearing Status: Weight Bear as Tolerated Diet: low fat, low salt Additional Instructions: Follow up with with Dr. Freire, [facility], on 02/14/2022 at 9:30am in our [place] location. Follow up with: DAVIDE KEYES MD [Primary Care Provider] - 7 Days ISAAC FREIRE MD [Staff Physician] - 7 Days Forms: Discharge Signature Page Prescriptions: dilTIAZem [Cardizem] 30 mg PO Q6HR #120 tablet Digoxin [Lanoxin] 0.125 mg PO DAILY@1700 #30 tablet Metoprolol [Lopressor TAB] 25 mg PO BID #60 tablet Famotidine [Pepcid] 20 mg PO BID #60 tablet Flecainide [Tambocor] 100 mg PO Q12HR #60 tablet Rivaroxaban [Xarelto] 20 mg PO QDAY #30 tab
[2022-02-09 09:00] VITALS: BP 96/56
[2022-02-09] MEDS: METOPROLOL TARTRATE 25 MG TAB PO SCH (10:07)
[2022-02-09] MEDS: APIXABAN 5 MG TAB PO SCH (10:07)
[2022-02-09] MEDS: FLECAINIDE 100 MG TAB PO SCH (10:07)
[2022-02-09] MEDS: FAMOTIDINE 20 MG TAB PO SCH (10:07)
--- NOTE | 2022-02-09 11:34 | Progress Note ---
Assessment and Plan Patient is 56-year-old female with no past medical history presents to the ED yesterday with complaint of palpitations/chest pounding associated with some shortness of breath while at work that day New onset A. fib with RVR Obesity Echo 02/04/2022-EF 55 to 60%. Right ventricular systolic function is normal. Mild tricuspid regurgitation. A small pericardial effusion is present Lexiscan MPI stress test 02/04/2022-negative for ischemia with normal LV size and function and no regional wall motion abnormality Plan: Telemetry reviewed patient remains in A. fib rate controlled 80s. Patient ambulated today when patient ambulated heart rate remained controlled trending 90s to low 100s Continue diltiazem 60 mg p.o. every 6 hours for rate control, flecainide 100 mg p.o. twice daily,digoxin 0.125 mg p.o. daily,metoprolol 25 mg p.o. twice daily Continue anticoagulation with Eliquis Discussed importance of medication compliance and importance of follow-up appointments. Patient verbalized understanding and acknowledgment Cardiac status otherwise stable for discharge Patient has a follow up with with Dr. Freire, [facility], on 02/14/2022 at 9:30am in our [place] location. Patient seen in conjunction with Dr. Cadena who agrees with this plan of care - Patient Problems (1) Obesity Current Visit: Yes Status: Acute (2) HLD (hyperlipidemia) Current Visit: Yes Status: Acute (3) Atrial fibrillation with RVR Current Visit: Yes Status: Acute (4) New onset a-fib Current Visit: Yes Status: Acute Subjective Date of service: 02/09/22 Principal diagnosis: New onset AF with RVR, CP Interval history: Patient resting in bed in no acute distress. Patient currently trending A. fib 80s on monitor Objective Vital Signs Temp Pulse Pulse Pulse Resp BP Pulse Ox 02/09/22 10:00 68 68 98 02/09/22 08:10 97.9 F 66 18 96/56 100 02/09/22 05:53 79 02/09/22 04:35 98.4 F 70 16 108/73 100 02/08/22 22:39 97.7 F 78 18 115/74 100 02/08/22 21:19 73 02/08/22 20:53 73 89 17 97 02/08/22 20:00 98.5 F 73 16 105/66 99 02/08/22 16:46 97.6 F 18 119/76 02/08/22 12:01 98.5 F 14 115/74 98 - Physical Examination General: No Apparent Distress HEENT: Positive: EOMI, Normocephaly, Mucus Membranes Moist Neck: Positive: neck supple, trachea midline Cardiac: Positive: irregularly irregular Lungs: Positive: Normal Breath Sounds Neuro: Positive: Grossly Intact Abdomen: Positive: Soft, Active Bowel Sounds. Negative: Tender Skin: Positive: Clear. Negative: Rash Musculoskeletal: Normal Range of Motion Extremities: Absent: edema - Imaging and Cardiology EKG: report reviewed (Atrial fibrillation with RVR no acute ST-T wave changes) Echo: report reviewed, image reviewed - Telemetry EKG Rhythm: Atrial Fibrillation - EKG Supraventricular dysrhythmia: atrial fibrillation
== END 2022-02-09 12:30 | disposition home or self-care (01) | DRG 392 ==
LOC: ED 11:50 → 4A 19:41 → OBSVTOIN 02-05 15:48
PROVIDERS: ADMIT Internal Medicine; ATTEND Internal Medicine
DX: K21.9 Gastro-esophageal reflux disease without esophagitis (principal); Z68.43 Body mass index [BMI] 50.0-59.9, adult; I31.3 Pericardial effusion (noninflammatory); I48.91 Unspecified atrial fibrillation; E88.09 Other disorders of plasma-protein metabolism, not elsewhere classified; E66.01 Morbid (severe) obesity due to excess calories; Z71.3 Dietary counseling and surveillance; E78.5 Hyperlipidemia, unspecified; Z88.0 Allergy status to penicillin; M81.0 Age-related osteoporosis without current pathological fracture; Z82.49 Family history of ischemic heart disease and other diseases of the circulatory system
CPT/HCPCS: 36415; 71045; 78452; 80053; 82565; 83735; 83880; 84443; 84484; 85025; 85027; 85610; 85730; 93005; 93017; 93306; G0378; Q0162; A9502; C8929; J1160; J1644; J2785; J7030

== ENCOUNTER 2022-03-14 06:21 | Day surgery (SDC) | payer OTHER ==
[2022-03-14] MEDS ORDERED: SODIUM CHLORIDE 0.9% 1000 ML 1,000 ML IV SCH (07:00)
[2022-03-14 07:03] LABS: Basophils % (Auto) 0.6 % (0.0-1.8); Eosinophils # (Auto) 0.1 K/mm3 (0.0-0.4); Hematocrit 39.4 % (30.3-42.9); Hemoglobin 12.7 gm/dl (10.1-14.3); Lymphocytes # (Auto) 2.5 K/mm3 (1.2-5.4); Lymphocytes % (Auto) 33.3 % (13.4-35.0); Mean Corpuscular HGB Conc 32 % (30-34); Mean Corpuscular Volume 93 fl (79-97); Monocytes % (Auto) 12.9 % (0.0-7.3); Red Blood Count 4.24 M/mm3 (3.65-5.03); Red Cell Distribution Width 13.3 % (13.2-15.2)
[2022-03-14 07:04] VITALS: BP 120/64
[2022-03-14 07:12] LABS: Platelet Count 274 K/mm3 (140-440)
[2022-03-14 07:14] LABS: INR 1.32 (0.87-1.13)
[2022-03-14 07:15] LABS: Partial Thromboplastin Time 36.5 Sec. (24.2-36.6)
[2022-03-14 07:17] LABS: Blood Urea Nitrogen 14 mg/dL (7-17); Calcium 9.2 mg/dL (8.4-10.2); Hemolysis Index 2
[2022-03-14 07:35] LABS: BUN/Creatinine Ratio 23
--- NOTE | 2022-03-15 11:28 | Electrocardiograph Report ---
[facility] Test Date: 2022-03-14 Test Time: 06:59:45 Pat Name: JEAN CARLOS FERNANDO Department: Room: Gender: F Glove Cleaner: JOSE LUIS : 1965 Requested By: MITCHEL FREIRE Order Number: [id number] Reading MD: Mitchel Freire Measurements Intervals [place] Rate: 49 P: 50 NH: 188 QRS: 11 QRSD: 73 T: 42 QT: 467 QTc: 416 Interpretive Statements Sinus bradycardia Atrial premature complex Compared to ECG 02/07/2022 11:57:56 Atrial premature complex(es) now present Atrial fibrillation no longer present Electronically Signed On 03-15-2022 11:27:53 EDT by Mitchel Freire
== END 2022-03-14 08:30 | disposition home or self-care (01) ==
LOC: CATHLABREC 06:21
PROVIDERS: ATTEND Internal Medicine
DX: I48.19 Other persistent atrial fibrillation (principal); I10 Essential (primary) hypertension; Z53.8 Procedure and treatment not carried out for other reasons; E78.5 Hyperlipidemia, unspecified; E66.9 Obesity, unspecified; M19.90 Unspecified osteoarthritis, unspecified site; Z88.0 Allergy status to penicillin; Z88.6 Allergy status to analgesic agent; Z79.899 Other long term (current) drug therapy; Z68.43 Body mass index [BMI] 50.0-59.9, adult; Z82.5 Family history of asthma and other chronic lower respiratory diseases; Z98.890 Other specified postprocedural states; Z82.49 Family history of ischemic heart disease and other diseases of the circulatory system
CPT/HCPCS: 36415; 80048; 85025; 85610; 85730; 93005